=== PATIENT | female | born 1990 | race Caucasian/White ===

== ENCOUNTER 2017-09-24 17:17 | Emergency (ER) | payer OTHER ==
--- NOTE | 2017-09-24 17:53 | PDOC ---
Rapid Medical Evaluation Time Seen by Provider: 09/24/17 17:48 Medical Evaluation: Allergies Allergy/AdvReac Type Severity Reaction Status Date / Time No Known Allergies Allergy Verified 09/24/17 17:49 09/24/17 17:50 I have performed a brief in-person evaluation of the patient. The patient presents with a chief complaint of : lower abdominal cramping with +home test , seen by urgent care and referred here. States also spotting with pain mostly to left lower abdomen Pertinent physical exam findings. NAD unlabored breathing I have ordered the following urine , bhcg, cbc, This patient will proceed to the ED for further evaluation.
[2017-09-24 17:54] VITALS: BP 110/50; PULSE 87; TEMP 98.1; BMI 18.1
--- NOTE | 2017-09-24 18:15 | PDOC ---
History of Present Illness - General Chief Complaint: Vaginal Bleeding Stated Complaint: ABDOMINAL PAIN Time Seen by Provider: 09/24/17 17:48 - History of Present Illness Initial Comments: 09/24/17 18:15 Ms. Umanzor is a 27 yo A3 w/ pmh of GERD who presents for evaluation after she was found to be at urgent care earlier today. Patient had originally presented to urgent care for evaluation of abdominal pain for the last 2 weeks and was told to present to ED with positive diagnosis. Per who is with her Ms. Umanzor has had similar generalized abdominal pain with her last . Patient also reports shortness of breath earlier today although this has now resolved. The patient denies chest pain, headache and dizziness. Denies fever, chills, nausea, vomit, diarrhea and constipation. Denies dysuria, frequency, urgency and hematuria. Allergies: NKDA Past History - Past Medical History Allergies/Adverse Reactions: Allergies Allergy/AdvReac Type Severity Reaction Status Date / Time No Known Allergies Allergy Verified 09/24/17 17:49 Home Medications: Ambulatory Orders Cephalexin [Keflex] 500 mg PO BID #14 capsule 09/24/17 COPD: No - Suicide/Smoking/Psychosocial Hx Smoking History: Never smoked Have you smoked in the past 12 months: No Information on smoking cessation initiated: No Hx Alcohol Use: No Drug/Substance Use Hx: No Substance Use Type: None Review of Systems - Review of Systems Comments:: 09/24/17 18:15 GENERAL/CONSTITUTIONAL: No fever or chills. No weakness. HEAD, EYES, EARS, NOSE AND THROAT: No change in vision. No ear pain or discharge. No sore throat. CARDIOVASCULAR: +SOB as described. No chest pain. RESPIRATORY: No cough, wheezing, or hemoptysis. GASTROINTESTINAL: +Generalized abdominal pain. No nausea, vomiting, diarrhea or constipation. GENITOURINARY: No dysuria, frequency, or change in urination. MUSCULOSKELETAL: No joint or muscle swelling or pain. No neck or back pain. SKIN: No rash NEUROLOGIC: No headache, vertigo, loss of consciousness, or change in strength/ sensation. ENDOCRINE: No increased thirst. No abnormal weight change HEMATOLOGIC/LYMPHATIC: No anemia, easy bleeding, or history of blood clots. ALLERGIC/IMMUNOLOGIC: No hives or skin allergy. *Physical Exam - Vital Signs Last Vital Signs Temp Pulse Resp BP Pulse Ox 98.1 F 87 20 110/50 100 09/24/17 17:50 09/24/17 17:50 09/24/17 17:50 09/24/17 17:50 09/24/17 17:50 - Physical Exam Comments: 09/24/17 18:15 GENERAL: Awake, alert, and fully oriented, in no acute distress HEAD: No signs of trauma, normocephalic, atraumatic EYES: PERRLA, EOMI, sclera anicteric, conjunctiva clear ENT: Auricles normal inspection, hearing grossly normal, nares patent, oropharynx clear without exudates. Moist mucosa NECK: Normal ROM, supple, no lymphadenopathy, JVD, or masses LUNGS: No distress, speaks full sentences, clear to auscultation bilaterally HEART: Regular rate and rhythm, normal S1 and S2, no murmurs, rubs or gallops, peripheral pulses normal and equal bilaterally. ABDOMEN: +Generalized abdominal TTP. Soft, normoactive bowel sounds. No guarding , no rebound. No masses EXTREMITIES: Normal inspection, Normal range of motion, no edema. No clubbing or cyanosis. NEUROLOGICAL: Cranial nerves II through XII grossly intact. Normal speech, normal gait, no focal sensorimotor deficits SKIN: Warm, Dry, normal turgor, no rashes or lesions noted. ED Treatment Course - LABORATORY CBC & Chemistry Diagram: 09/24/17 18:29 Medical Decision Making - Medical Decision Making 09/24/17 20:45 Ms. Umanzor is a 27 yo female w/ pmh as described who presents for evaluation of abdominal pain in new onset . Patient noted to have UTI with positive nitriles as below. US sent for confirmation of IUP. 09/24/17 21:39 Patient noted to be 5w1d IUP, unable to visualize HR at this time. Patient given keflex for treatment of UTI. Patient will follow-up with [facility] for further outpatient evaluation. Laboratory Results - last 24 hr 09/24/17 09/24/17 09/24/17 18:29 18:29 19:30 WBC 4.4 RBC 4.65 Hgb 11.2 Hct 34.6 MCV 74.3 L MCH 24.0 L MCHC 32.3 RDW 16.4 H Plt Count 229 MPV 8.6 Neutrophils % 42.5 L Lymphocytes % 46.5 H Monocytes % 8.0 Eosinophils % 2.3 Basophils % 0.7 Nucleated RBC % 0 Beta HCG, Quant 04821.3 Urine Color Yellow Urine Appearance Slcloudy Urine pH 5.0 Ur Specific [place] 1.018 Urine Protein Negative Urine Glucose (UA) Negative Urine Ketones Negative Urine Blood 2+ H Urine Nitrite Positive Urine Bilirubin Negative Urine Urobilinogen Negative Ur Leukocyte Esterase Trace Urine WBC (Auto) 8 Urine RBC (Auto) 2 Ur Epithelial Cells Rare Urine Bacteria Few Urine Mucus Many Urine HCG, Qual Positive *DC/Admit/Observation/Transfer Diagnosis at time of Disposition: Qualifiers: Weeks of gestation: less than 8 weeks Qualified Code(s): Z3A.01 - Less than 8 weeks gestation of UTI (urinary tract infection) Qualifiers: Urinary tract infection type: site unspecified Hematuria presence: with hematuria Qualified Code(s): N39.0 - Urinary tract infection, site not specified ; R31.9 - Hematuria, unspecified - Prescriptions Prescriptions: Cephalexin [Keflex] 500 mg PO BID #14 capsule - Referrals Referrals: Jevon Gifford MD [Staff Physician] - - Patient Instructions Printed Discharge Instructions: DI for Urinary Tract Infection (UTI), DI for -- Discomforts and Remedies Additional Instructions: Please follow-up with [facility] as discussed for further evaluation. Take antibiotics as proscribed fur UTI treatment. Return to ER if any return or increase of pain, fever, chills, or other concerning symptoms. - Post Discharge Activity
--- NOTE | 2017-09-24 18:25 | PDOC ---
Attending Attestation - HPI HPI: 09/24/17 20:09 The patient is a 27 year old female, A3, with past medical history of GERD presents to the emergency department s/p urgent care for an evaluation. The patient reports she was at the urgency care earlier today due to abdominal pain. At the urgency care, the patient found out that she is , then was given a referral to get evaluated at the ED. As per the , the patient suffered a similar pain during the past . Denies any nausea or vomiting. Denies fever, chills, chest pain or sob. Denies headache or vertigo. Denies dysuria, hematuria, frequency or urgency to urinate. Denies any vaginal discharge or bleeding. Allergies: NKDA Social history: None reported Surgical history: None reported PCP: None reported. - Physicial Exam PE: 09/24/17 20:11 GENERAL: Awake, alert, and fully oriented, in no acute distress HEAD: No signs of trauma EYES: PERRLA, EOMI, sclera anicteric, conjunctiva clear ENT: Auricles normal inspection, hearing grossly normal, nares patent, oropharynx clear without exudates. Moist mucosa NECK: Normal ROM, supple, no lymphadenopathy, JVD, or masses LUNGS: Breath sounds equal, clear to auscultation bilaterally. No wheezes, and no crackles HEART: Regular rate and rhythm, normal S1 and S2, no murmurs, rubs or gallops ABDOMEN:(+) Mild suprapubic tenderness. Soft, normoactive bowel sounds. No guarding, no rebound. No masses EXTREMITIES: Normal range of motion, no edema. No clubbing or cyanosis. No cords, erythema, or tenderness NEUROLOGICAL: Cranial nerves II through XII grossly intact. Normal speech, normal gait SKIN: Warm, Dry, normal turgor, no rashes or lesions noted. - Medical Decision Making 09/24/17 20:11 Documentation prepared by Christelle Singh, acting as medical laboratory specialist for Ann Mcintosh MD. <Christelle Singh - Last Filed: 09/24/17 20:09> - Resident Resident Name: Dashawn Tirado - ED Attending Attestation I have performed the following: I have examined & evaluated the patient, The case was reviewed & discussed with the resident, I agree w/resident's findings & plan, Exceptions are as noted - Physicial Exam PE: : No external lesions. No discharge. No adnexal or uterine tenderness. - Medical Decision Making Pt with lower abd pain, positive UCG. Will obtain labs, UA, and ultrasound. <Ann Mcintosh - Last Filed: 09/24/17 20:15>
[2017-09-24 18:36] LABS: BASO % 0.7 % (0-2.0); EOS % 2.3 % (0-4.5); HEMATOCRIT 34.6 % (32.4-45.2); HEMOGLOBIN 11.2 GM/dL (10.7-15.3); LYMPH % 46.5 % (8-40); MCHC 32.3 g/dl (32.0-36.0); MEAN CELL VOLUME 74.3 fl (80-96); MEAN PLT VOLUME 8.6 fl (7.5-11.1); NEUT % 42.5 % (42.8-82.8); PLATELET COUNT 229 K/MM3 (134-434); RBC 4.65 M/mm3 (3.60-5.2); RDW 16.4 % (11.6-15.6); WHITE BLOOD COUNT 4.4 K/mm3 (4.0-10.0)
[2017-09-24 19:49] LABS: URINE APPEARANCE SLCLOUDY; URINE BILIRUBIN NEGATIVE (<2.0 mg/dL); URINE COLOR YELLOW; URINE GLUCOSE (UA) NEGATIVE (NEGATIVE); URINE KETONE NEGATIVE (NEGATIVE); URINE LEUK ESTERASE TRACE (NEGATIVE); URINE NITRITE POSITIVE (NEGATIVE); URINE PROTEIN NEGATIVE (NEGATIVE); URINE UROBILINOGEN NEGATIVE mg/dL (0.2-1.0)
[2017-09-24 20:02] LABS: HCG,QUALITATIVE URINE POSITIVE
[2017-09-24 20:04] LABS: EPI CELLS RARE /HPF (FEW); URINE BACTERIA FEW /hpf (NONE SEEN); URINE MUCUS MANY
[2017-09-24] MEDS ORDERED: CEPHALEXIN MONOHYDRATE 500 MG CAPSULE (UD) PO ONE (21:34)
[2017-09-24] MEDS ORDERED: CEPHALEXIN MONOHYDRATE 500 MG CAPSULE (UD) ONE (22:20)
== END 2017-09-24 22:31 | disposition home or self-care (01) ==
LOC: JER 17:17
DX: O26.891 Other specified pregnancy related conditions, first trimester (principal); Z3A.01 Less than 8 weeks gestation of pregnancy; N39.0 Urinary tract infection, site not specified; K21.9 Gastro-esophageal reflux disease without esophagitis
CPT/HCPCS: 36415; 76817-TC; 81003; 81015; 84702; 84703; 85025; 86850; 86900; 86901; 87086; 87186; 99283-25

== ENCOUNTER 2018-05-13 16:06 | Emergency (ER) | payer OTHER ==
[2018-05-13 16:30] VITALS: BP 125/93; PULSE 101; TEMP 97.9; BMI 19.7
--- NOTE | 2018-05-13 16:30 | PDOC ---
Rapid Medical Evaluation Chief Complaint: Hemoptysis Medical Evaluation: Allergies Allergy/AdvReac Type Severity Reaction Status Date / Time No Known Allergies Allergy Verified 09/24/17 17:49 I have performed a brief in-person evaluation of this patient. The patient presents with a chief complaint of: C/O cough x 3 weeks, and then noting hemoptysis x 5 days; denies fever, chills, weight loss; sent by PCP to r/ o TB Pertinent physical exam findings: In NAD I have ordered the following: Labs, CXR The patient will proceed to the ED for further evaluation. 05/13/18 16:26 Discharge Disposition - Discharge Dispostion Condition at time of disposition: Stable - Referrals - Patient Instructions - Post Discharge Activity
[2018-05-13 18:06] LABS: BASO % 0.4 % (0-2.0); EOS % 1.7 % (0-4.5); HEMATOCRIT 37.5 % (32.4-45.2); HEMOGLOBIN 12.4 GM/dL (10.7-15.3); LYMPH % 32.5 % (8-40); MCH 27.1 pg (25.7-33.7); MEAN CELL VOLUME 82.1 fl (80-96); MEAN PLT VOLUME 8.3 fl (7.5-11.1); MONO % 6.2 % (3.8-10.2); NEUT % 59.2 % (42.8-82.8); PLATELET COUNT 193 K/MM3 (134-434); RBC 4.57 M/mm3 (3.60-5.2); RDW 15.1 % (11.6-15.6)
[2018-05-13 18:24] LABS: ANION GAP 8 MMOL/L (8-16); BLOOD UREA NITROGEN 11 mg/dL (7-18); CALCIUM 8.8 mg/dL (8.5-10.1); CHLORIDE 108 mmol/L (98-107); CO2 27 mmol/L (21-32); CREATININE 0.5 mg/dL (0.55-1.3); GLUCOSE,RANDOM 90 mg/dL (74-106); POTASSIUM 3.8 mmol/L (3.5-5.1); SODIUM 142 mmol/L (136-145)
--- NOTE | 2018-05-13 18:26 | PDOC ---
History of Present Illness - General Chief Complaint: Hemoptysis Stated Complaint: PCP SENT Time Seen by Provider: 05/13/18 16:26 History Source: Patient Exam Limitations: No Limitations - History of Present Illness Initial Comments: 28 yo F with a hx of latent tuberculosis (dx 4 months ago; on INH and compliant ) presents to the emergency department as a referral from Dr. Condon to evaluate for active TB. Per the patient, she had 5 days of hemoptysis in late March and since then has not had another episode. For the past 3 weeks, she has had an ongoing non-productive cough with associative SOB without worsening with exertion. She moved from [facility] 2-3 years ago. Denies the following: night sweats, fevers, chest pain, and recent contact with others exhibiting similar symptoms. Per the patient, she endorse having weightloss for the last 6 months with improvement in weight over the past 2 months. Denies the following: FND, visual changes, nausea, vomiting, abdominal pain, dysuria, hematuria, diarrhea, hematochezia, and leg pain/swelling. Shx: C/S 2x Allergies: NKDA Meds: INH, vitamin B6, omeprazole Social: Denies tobacco, alcohol, and substance abuse. Past History - Past Medical History Allergies/Adverse Reactions: Allergies Allergy/AdvReac Type Severity Reaction Status Date / Time No Known Allergies Allergy Verified 05/13/18 18:32 Home Medications: Ambulatory Orders Cholecalciferol (Vitamin D3) [D3-50] 50,000 unit PO WEEKLY 05/13/18 Isoniazid 300 mg PO DAILY 05/13/18 Norethindrone 0.35 mg PO DAILY 05/13/18 Omeprazole 20 mg PO DAILY 05/13/18 Pyridoxine HCl (B-6) [Vitamin B6] 100 mg PO DAILY 05/13/18 COPD: No GI Disorders: No Hypercholesterolemia: No - Surgical History Gastric Stapling: No Lung Surgery: No - Reproductive History Para: 1 - Immunization History Immunization Up to Date: No - Suicide/Smoking/Psychosocial Hx Smoking History: Never smoked Have you smoked in the past 12 months: No Information on smoking cessation initiated: No Hx Alcohol Use: No Drug/Substance Use Hx: No Substance Use Type: None Review of Systems - Review of Systems Able to Perform ROS?: Yes Is the patient limited Estonian proficient: No Constitutional: No: Chills, Diaphoresis, Fever, Weakness HEENTM: No: Eye Pain, Recent change in vision, Ear Pain, Nose Pain, Throat Pain , Mouth Pain Respiratory: Yes: Cough, Shortness of Breath. No: SOB with Exertion, Hemoptysis Cardiac (ROS): No: Chest Pain, Lightheadedness, Palpitations, Syncope, Chest Tightness ABD/GI: No: Constipated, Diarrhea, Nausea, Poor Appetite, Poor Fluid Intake, Rectal Bleeding, Vomiting, Tarry Stools : No: Burning, Dysuria, Hematuria, Urgency Musculoskeletal: No: Back Pain, Joint Pain, Neck Pain Integumentary: No: Erythema, Flushing, Lesions, Rash, Sweating Neurological: No: Headache, Numbness, Tingling, Tremors, Ataxia, Dizziness Psychiatric: No: Stressors, Change in Appetite Endocrine: No: Unexplained Weight Gain Hematologic/Lymphatic: No: Anemia *Physical Exam - Vital Signs Last Vital Signs Temp Pulse Resp BP Pulse Ox 97.9 F 101 H 16 125/93 100 05/13/18 16:25 05/13/18 16:25 05/13/18 16:25 05/13/18 16:25 05/13/18 16:25 - Physical Exam General Appearance: Yes: Nourished, Appropriately Dressed. No: Apparent Distress, Intoxicated HEENT: positive: EOMI, JANINE, Normal ENT Inspection, Normal Voice, Symmetrical, TMs Normal, Pharynx Normal, Hearing Grossly Normal. negative: Pale Conjunctivae , Scleral Icterus (R), Scleral Icterus (L), Muffled/Hoarse voice, Pharyngeal Erythema, Tonsillar Exudate, Tonsillar Erythema, Nasal Congestion, Rhinorrhea, Sinus Tenderness, Excessive drooling Neck: positive: Trachea midline. negative: Tender, Lymphadenopathy (R), Lymphadenopathy (L), Tender lateral, Tender midline Respiratory/Chest: positive: Lungs Clear, Normal Breath Sounds. negative: Chest Tender, Respiratory Distress, Accessory Muscle Use, Crackles, Rales, Rhonchi, Stridor, Wheezing, Hyperresonant Cardiovascular: positive: Regular Rhythm, Regular Rate, S1, S2. negative: Systolic Murmur Gastrointestinal/Abdominal: positive: Normal Bowel Sounds, Flat, Soft. negative : Tender, Rebound, Tenderness, Hernia Lymphatic: negative: Adenopathy Musculoskeletal: positive: Normal Inspection. negative: CVA Tenderness, Vertebral Tenderness Extremity: positive: Normal Capillary Refill, Normal Inspection, Normal Range of Motion. negative: Tender, Swelling, Calf Tenderness Integumentary: positive: Normal Color, Dry, Warm. negative: Erythema, Jaundice , Moist, Hives, Petechiae, Rash, Swelling Neurologic: positive: gas plant repairer II-XII NML intact, Fully Oriented, Alert, Normal Mood/ Affect, Normal Response, Motor Strength 5/5. negative: EOM Palsy, Facial Droop , Sensory Deficit Moderate Sedation - Procedure Monitoring Vital Signs: Procedure Monitoring Vital Signs Temperature 97.9 F 05/13/18 16:25 Pulse Rate 101 H 05/13/18 16:25 Respiratory Rate 16 05/13/18 16:25 Blood Pressure 125/93 05/13/18 16:25 O2 Sat by Pulse Oximetry (%) 100 05/13/18 16:25 ED Treatment Course - LABORATORY CBC & Chemistry Diagram: 05/13/18 17:45 05/13/18 17:45 - ADDITIONAL ORDERS Additional order review: Laboratory Results 05/13/18 17:45 Sodium 142 Potassium 3.8 Chloride 108 H Carbon Dioxide 27 Anion Gap 8 BUN 11 Creatinine 0.5 L Creat Clearance w eGFR > 60 Random Glucose 90 Calcium 8.8 Medical Decision Making - Medical Decision Making 28 yo F with a hx of latent tuberculosis (dx 4 months ago; on INH and compliant ) presents to the emergency department as a referral from Dr. Condon to evaluate for active TB. Initial vitals: Initial Vital Signs Temp Pulse Resp BP Pulse Ox 97.9 F 101 H 16 125/93 100 05/13/18 16:25 05/13/18 16:25 05/13/18 16:25 05/13/18 16:25 05/13/18 16:25 Work up: ddx: r/o active TB vs URI vs PNA. patient has been compliant with medications including her b6 supplements. patient denies hemoptysis and likely does not have active. will have on contact precautions until cxr read. will get cbc, cmp, cxr, influenza Laboratory Tests 05/13/18 05/13/18 05/13/18 17:45 17:45 19:45 WBC 6.0 RBC 4.57 Hgb 12.4 Hct 37.5 MCV 82.1 MCH 27.1 D MCHC 33.0 RDW 15.1 Plt Count 193 MPV 8.3 Absolute Neuts (auto) 3.5 Neutrophils % 59.2 D Lymphocytes % 32.5 D Monocytes % 6.2 Eosinophils % 1.7 Basophils % 0.4 Nucleated RBC % 0 Sodium 142 Potassium 3.8 Chloride 108 H Carbon Dioxide 27 Anion Gap 8 BUN 11 Creatinine 0.5 L Creat Clearance w eGFR > 60 Random Glucose 90 Calcium 8.8 Influenza A (Rapid) Negative Influenza B (Rapid) Negative CXR was negative for active disease. patient's labs were within normal limits. negative flu. I spoke to Dr. Olivo over the phone and she agreed to follow up with the patient at discharge. I discussed the physical exam findings, ancillary test results, and final diagnoses with the patient. I answered all of the patients questions to their satisfaction. The patient was satisfied with the care received and felt comfortable with the discussed discharge and treatment plan and accepted it. They agreed to follow up with their primary medical physical physician within 24 -72 hours after discharge for follow up care and management. Dispo: Discharge *DC/Admit/Observation/Transfer Diagnosis at time of Disposition: Cough, Latent tuberculosis - Discharge Dispostion Disposition: HOME Condition at time of disposition: Good Decision to Admit order: No - Referrals Referrals: Domonique Olivo MD [Provisional Medical Staff] - - Patient Instructions Printed Discharge Instructions: DI for Tuberculosis Additional Instructions: you were evaluated in the emergency department for your cough and to ascertain if you have active tuberculosis. your chest xray was negative. please follow up with Dr. Olivo within the next 3 days for follow up care and management. please continue to take your antibiotics as prescribed. please return to the emergency department if you develop fevers with blood in your coughs, night sweats, and uncontrollable pain. thank you. - Post Discharge Activity
--- NOTE | 2018-05-13 18:51 | PDOC ---
Attending Attestation - Resident Resident Name: Tai Wilson - ED Attending Attestation I have performed the following: I have examined & evaluated the patient, The case was reviewed & discussed with the resident, I agree w/resident's findings & plan, Exceptions are as noted - Medical Decision Making 05/13/18 18:48 I, Dr. Hannah Hopson, DO, attest that this document has been prepared under my direction and personally reviewed by me in its entirety. I further attest, that it accurately reflects all work, treatment, procedures and medical decision -making performed by me. 05/13/18 18:49 a/p: 28yo female on isoniazid with cough- sent from Dr. Olivo for eval of cough -no hemoptysis since march -coughing more recently -on 4th bottle of INH -hx of TB -concern for active TB -seen by Dr. Condon today (pulm) 05/13/18 19:25 cxr clear <Hannah Hopson - Last Filed: 05/13/18 19:25> - HPI HPI: This patient is a 28 year old, Indonesian-speaking female (from [facility]) with PMHx of +TB, currently on 4th bottle of isoniazid with cough and sent by her farm agent for evaluation of cough (concern for active TB). Patient Canadian is limited and additional history was provided by her . He states that she was sick 2 weeks ago and had a cough with fever that eventually went away. He denies any fever, night sweats, or hemoptysis for the past 2 weeks. - Physicial Exam PE: GENERAL: Awake, alert, and fully oriented, in no acute distress HEAD: No signs of trauma EYES: PERRLA, EOMI, sclera anicteric, conjunctiva clear ENT: Auricles normal inspection, hearing grossly normal, nares patent, oropharynx clear without exudates. Moist mucosa NECK: Normal ROM, supple, no lymphadenopathy, JVD, or masses LUNGS: Breath sounds equal, clear to auscultation bilaterally. No wheezes, and no crackles HEART: Tachycardic Regular normal S1 and S2, no murmurs, rubs or gallops ABDOMEN: Soft, nontender, normoactive bowel sounds. No guarding, no rebound. No masses EXTREMITIES: Normal range of motion, no edema. No clubbing or cyanosis. No cords, erythema, or tenderness NEUROLOGICAL: Cranial nerves II through XII grossly intact. Normal speech, normal gait SKIN: Warm, Dry, normal turgor, no rashes or lesions noted. <Tessy Rodriguez - Last Filed: 05/13/18 20:56>
== END 2018-05-13 21:01 | disposition home or self-care (01) ==
LOC: JER 16:06
DX: R76.11 Nonspecific reaction to tuberculin skin test without active tuberculosis (principal); R05 Cough
CPT/HCPCS: 36415; 71046-TC-FY; 80048; 85025; 87804; 99283-25

== ENCOUNTER 2018-06-02 11:24 | Inpatient (IN) | payer OTHER ==
--- NOTE | 2018-06-02 11:32 | PDOC ---
History of Present Illness - General Stated Complaint: BACK PAIN Time Seen by Provider: 06/02/18 11:32 - History of Present Illness Initial Comments: 06/02/18 11:37 Ms. Umanzor is a 28 yo female w/ pmh of current treatment for latent TB (on INH for 5 months) who presents for evaluation of 1 day history of lower back pain, urinary frequency, myalgias, dysuria, fever, headache, and nausea. Also 10/10 sharp lower abdominal pain. LMP May 02, on OCP's. Patient presents from PCP 's office with concerns of UTI. The patient denies chest pain, shortness of breath, headache and dizziness. Denies fever, chills, nausea, vomit, diarrhea and constipation. Past History - Past Medical History Allergies/Adverse Reactions: Allergies Allergy/AdvReac Type Severity Reaction Status Date / Time No Known Allergies Allergy Verified 06/02/18 11:40 Home Medications: Ambulatory Orders Cholecalciferol (Vitamin D3) [D3-50] 50,000 unit PO WEEKLY 05/13/18 Isoniazid 300 mg PO DAILY 05/13/18 Norethindrone 0.35 mg PO DAILY 05/13/18 Omeprazole 20 mg PO DAILY 05/13/18 Pyridoxine HCl (B-6) [Vitamin B6] 100 mg PO DAILY 05/13/18 COPD: No GI Disorders: No Hypercholesterolemia: No - Surgical History Gastric Stapling: No Lung Surgery: No - Reproductive History Para: 1 - Immunization History Immunization Up to Date: No - Suicide/Smoking/Psychosocial Hx Smoking History: Never smoked Have you smoked in the past 12 months: No Hx Alcohol Use: No Drug/Substance Use Hx: No Substance Use Type: None Review of Systems - Review of Systems Comments:: 06/02/18 11:38 GENERAL/CONSTITUTIONAL: Fevers x1 day. No weakness. HEAD, EYES, EARS, NOSE AND THROAT: No change in vision. No ear pain or discharge. No sore throat. CARDIOVASCULAR: No chest pain or shortness of breath RESPIRATORY: No cough, wheezing, or hemoptysis. GASTROINTESTINAL: No nausea, vomiting, diarrhea or constipation. GENITOURINARY: +Urinary changes as described. MUSCULOSKELETAL: +Myalgias and lower back pain. SKIN: No rash NEUROLOGIC: No headache, vertigo, loss of consciousness, or change in strength/ sensation. ENDOCRINE: No increased thirst. No abnormal weight change HEMATOLOGIC/LYMPHATIC: No anemia, easy bleeding, or history of blood clots. ALLERGIC/IMMUNOLOGIC: No hives or skin allergy. *Physical Exam - Physical Exam Comments: 06/02/18 11:38 GENERAL: Awake, alert, and fully oriented, in no acute distress HEAD: No signs of trauma, normocephalic, atraumatic EYES: PERRLA, EOMI, sclera anicteric, conjunctiva clear ENT: Auricles normal inspection, hearing grossly normal, nares patent, oropharynx clear without exudates. Moist mucosa NECK: Normal ROM, supple, no lymphadenopathy, JVD, or masses LUNGS: No distress, speaks full sentences, clear to auscultation bilaterally HEART: Regular rate and rhythm, normal S1 and S2, no murmurs, rubs or gallops, peripheral pulses normal and equal bilaterally. ABDOMEN: +Right CVA tenderness, midline abdominal TTP. Soft, normoactive bowel sounds. No guarding, no rebound. No masses EXTREMITIES: Normal inspection, Normal range of motion, no edema. No clubbing or cyanosis. NEUROLOGICAL: Cranial nerves II through XII grossly intact. Normal speech, normal gait, no focal sensorimotor deficits SKIN: Warm, Dry, normal turgor, no rashes or lesions noted. VAGINAL: +Right adnexal tenderness. Physiologic discharge. No CMT, minimal blood noted in cervix thought to be 2/2 speculum insertion. Os closed. ED Treatment Course - LABORATORY CBC & Chemistry Diagram: 06/02/18 12:45 06/02/18 12:13 Medical Decision Making - Medical Decision Making 06/02/18 15:56 Ms. Umanzor is a 28 yo female w/ pmh as described who presents for evaluation of symptoms concerning for appendicitis vs. ovarian torsion vs. pyelonephritis vs. uti. Patient evaluation started as below and grossly non-contributory. Rocephin 1000mg given for UTI as below. Patient evaluated with TVUS for r/o torsion; significant for single L sided simple cyst 4.2x4.8x3.6cm. Patient currently pending CT abd/pelvis for further evaluation of pain. 06/02/18 17:38 Patient noted to have right pyelonephritis and pyelitis. Discussed with patient who would prefer inpatient treatment. Will admit patient to PCP for further care. Laboratory Results - last 24 hr 0206/02/18 06/02/18 12:13 12:13 12:45 WBC RBC Hgb Hct MCV MCH MCHC RDW Plt Count MPV Absolute Neuts (auto) Neutrophils % Lymphocytes % Monocytes % Eosinophils % Basophils % Nucleated RBC % PT with INR INR PTT (Actin FS) Sodium 133 L Potassium 3.3 L Chloride 101 Carbon Dioxide 21 Anion Gap 10 BUN 6 L Creatinine 0.5 L Creat Clearance w eGFR > 60 Random Glucose 89 Lactic Acid 1.2 Calcium 8.3 L Total Bilirubin 0.8 AST 12 L ALT 10 L Alkaline Phosphatase 34 L Troponin I < 0.02 Total Protein 7.4 Albumin 3.8 Serum , Qual Negative Urine Color Urine Appearance Urine pH Ur Specific [place] Urine Protein Urine Glucose (UA) Urine Ketones Urine Blood Urine Nitrite Urine Bilirubin Urine Urobilinogen Ur Leukocyte Esterase Urine WBC (Auto) Urine RBC (Auto) Ur Epithelial Cells Urine Bacteria 06/02/18 06/02/18 06/02/18 12:45 12:45 12:45 WBC 7.1 RBC 4.54 Hgb 12.7 Hct 36.9 MCV 81.3 MCH 28.0 MCHC 34.4 RDW 14.4 Plt Count 154 D MPV 8.9 Absolute Neuts (auto) 6.0 Neutrophils % 84.6 H D Lymphocytes % 10.1 D Monocytes % 5.0 Eosinophils % 0.0 D Basophils % 0.3 Nucleated RBC % 0 PT with INR 14.90 H INR 1.26 H PTT (Actin FS) 29.3 Sodium Potassium Chloride Carbon Dioxide Anion Gap BUN Creatinine Creat Clearance w eGFR Random Glucose Lactic Acid Calcium Total Bilirubin AST ALT Alkaline Phosphatase Troponin I Total Protein Albumin Serum , Qual Urine Color Ltyellow Urine Appearance Slcloudy Urine pH 6.0 Ur Specific [place] 1.008 L Urine Protein 1+ H Urine Glucose (UA) Negative Urine Ketones 1+ H Urine Blood 3+ H Urine Nitrite Negative Urine Bilirubin Negative Urine Urobilinogen Negative Ur Leukocyte Esterase 1+ H Urine WBC (Auto) 48 Urine RBC (Auto) 21 Ur Epithelial Cells Rare Urine Bacteria Rare *DC/Admit/Observation/Transfer Diagnosis at time of Disposition: Pyelonephritis - Discharge Dispostion Decision to Admit order: Yes - Referrals Referrals: Cristy Guy MD [Primary Care Provider] - - Patient Instructions - Post Discharge Activity
[2018-06-02] MEDS ORDERED: SODIUM CHLORIDE 2,000 ML IV STA (12:15)
[2018-06-02] MEDS ORDERED: ACETAMINOPHEN 1000 MG/100 ML VIAL (NON FORMULARY) IVPB ONE ×2 (12:15→17:22)
[2018-06-02] MEDS ORDERED: ONDANSETRON 4 MG/2 ML VIAL IVPUSH ONE (12:15)
[2018-06-02] MEDS ORDERED: ACETAMINOPHEN INJECTION 100 ML IVPB ONE ×2 (12:18→17:38)
[2018-06-02] MEDS ORDERED: ONDANSETRON 4 MG/2 ML VIAL ONE (12:18)
[2018-06-02 12:55] LABS: BASO % 0.3 % (0-2.0); HEMATOCRIT 36.9 % (32.4-45.2); HEMOGLOBIN 12.7 GM/dL (10.7-15.3); LYMPH % 10.1 % (8-40); MCHC 34.4 g/dl (32.0-36.0); MEAN CELL VOLUME 81.3 fl (80-96); MEAN PLT VOLUME 8.9 fl (7.5-11.1); NEUT % 84.6 % (42.8-82.8); PLATELET COUNT 154 K/MM3 (134-434); RBC 4.54 M/mm3 (3.60-5.2); RDW 14.4 % (11.6-15.6); WHITE BLOOD COUNT 7.1 K/mm3 (4.0-10.0)
[2018-06-02 13:14] LABS: INR 1.26 (0.83-1.09); PROTHROMBIN TIME (PATIENT) 14.9 SEC (9.7-13.0)
[2018-06-02 13:16] LABS: ACTIVATED PTT 29.3 SECONDS (25.2-36.5)
[2018-06-02 13:22] LABS: URINE APPEARANCE SLCLOUDY; URINE BILIRUBIN NEGATIVE (<2.0 mg/dL); URINE COLOR LTYELLOW; URINE GLUCOSE (UA) NEGATIVE (NEGATIVE); URINE KETONE 1+ (NEGATIVE); URINE LEUK ESTERASE 1+ (NEGATIVE); URINE NITRITE NEGATIVE (NEGATIVE); URINE PROTEIN 1+ (NEGATIVE); URINE UROBILINOGEN NEGATIVE mg/dL (0.2-1.0)
[2018-06-02 13:32] LABS: ALBUMIN 3.8 g/dl (3.4-5.0); ALK PHOS 34 U/L (45-117); ANION GAP 10 MMOL/L (8-16); BILIRUBIN,TOTAL 0.8 mg/dL (0.2-1); BLOOD UREA NITROGEN 6 mg/dL (7-18); CALCIUM 8.3 mg/dL (8.5-10.1); CHLORIDE 101 mmol/L (98-107); CO2 21 mmol/L (21-32); CREATININE 0.5 mg/dL (0.55-1.3); GLUCOSE,RANDOM 89 mg/dL (74-106); POTASSIUM 3.3 mmol/L (3.5-5.1); SGOT/AST 12 U/L (15-37); SGPT/ALT 10 U/L (13-61); SODIUM 133 mmol/L (136-145); TOT PROT 7.4 g/dl (6.4-8.2)
[2018-06-02 13:33] LABS: EPI CELLS RARE /HPF (FEW); URINE BACTERIA RARE /hpf (NONE SEEN)
--- NOTE | 2018-06-02 13:49 | PDOC ---
Attending Attestation - Resident Resident Name: Dashawn Tirado - ED Attending Attestation I have performed the following: I have examined & evaluated the patient, The case was reviewed & discussed with the resident, I agree w/resident's findings & plan, Exceptions are as noted - HPI HPI: 06/02/18 13:44 28 F with h/o latent TB on INH, presenting to ED with fevers, dysuria, and lower back pain. Pt states that her symptoms began yesterday. She endorses R lower back pain and suprapubic pain. Also reports urinary frequency and dysuria , as well as generalized bodyaches. LMP was 1/5. Denies any vaginal bleeding currently. No h/o kidney stones. - Physicial Exam PE: 06/02/18 13:47 "GENERAL: Awake, alert, and fully oriented, in no acute distress. HEAD: No signs of trauma EYES: PERRLA, EOMI, sclera anicteric, conjunctiva clear ENT: Auricles normal inspection, hearing grossly normal, nares patent, oropharynx clear without exudates. Moist mucosa NECK: Nontender, no stepoffs, Normal ROM, supple, no lymphadenopathy, JVD, or masses LUNGS: Breath sounds equal, clear to auscultation bilaterally. No wheezes, and no crackles HEART: Regular rate and rhythm, normal S1 and S2, no murmurs, rubs or gallops ABDOMEN: + suprapubic TTP, normoactive bowel sounds. No guarding, no rebound. No masses BACK: + R CVAT, no midline TTP EXTREMITIES: Normal range of motion, no edema. No clubbing or cyanosis. No cords, erythema, or tenderness NEUROLOGICAL: Cranial nerves II through XII intact. 5/5 strength and sensation in all extremities, Normal speech, normal gait, normal cerebellar function SKIN: Warm, Dry, normal turgor, no rashes or lesions noted. : os closed, no bleeding, + R adnexal tenderness, no CMT - Medical Decision Making 06/02/18 13:48 28 F with dysuria, fevers, and R flank pain. Exam notable for R CVAT, suprapubic TTP, and R adnexal TTP. Suspect pyelo. Will also r/o appy vs torsion vs ectopic. - Labs, UPT - UA, UCx - TVUS - CTAP - IVF, tylenol 06/02/18 15:51 Labs unremarkable UA consistent with UTI Pt given ceftriaxone TVUS shows large L ovarian cyst with normal flow, R ovary unremarkable CT shows pyelo + pyelitis Will admit for continued IV abx and pain control
--- NOTE | 2018-06-02 14:04 | EKG ---
Test Reason : Blood Pressure : / mmHG Vent. Rate : 108 BPM Atrial Rate : 108 BPM P-R Int : 150 ms QRS Dur : 108 ms QT Int : 314 ms P-R-T Axes : 068 065 059 degrees QTc Int : 420 ms SINUS TACHYCARDIA POSSIBLE LEFT ATRIAL ENLARGEMENT INCOMPLETE RIGHT BUNDLE BRANCH BLOCK NONSPECIFIC T WAVE ABNORMALITY ABNORMAL ECG NO PREVIOUS ECGS AVAILABLE Confirmed by Jerome Blair MD ([id number]) on 06/02/2018 2:04:08 PM Referred By: Confirmed By:Jerome Blair MD
[2018-06-02] MEDS ORDERED: CEFTRIAXONE 1,000 MG in DEXTROSE 5%-WATER - 50 ML IVPB ONE (15:42)
[2018-06-02] MEDS ORDERED: CEFTRIAXONE 1 GM/50 ML BAG ONE (16:38)
[2018-06-02] MEDS ORDERED: IBUPROFEN 600 MG TABLET (FP) PO ONE ×2 (18:46→18:49)
--- NOTE | 2018-06-02 21:54 | PN ---
Teaching Attending Note Name of Resident: Sandy Stevens ATTENDING PHYSICIAN STATEMENT I saw and evaluated the patient. I reviewed the resident's note and discussed the case with the resident. I agree with the resident's findings and plan as documented. SUBJECTIVE: Patient is a 28 year old woman with PMH latent TB currently on INH (on INH for 5 months) who presents for evaluation of 1 day history of lower back pain, urinary frequency, myalgias, dysuria, fever, headache, and nausea. Also 10/10 sharp lower abdominal pain. LMP May 02, 2018 and on OCP (norethindrone - a form of progestin). Patient presents from PCP's office with concerns of UTI. She denies chest pain, shortness of breath, headache and dizziness. Denies fever , chills, nausea, vomit, diarrhea or constipation. OBJECTIVE: Alert Vital Signs Period Temp Pulse Resp BP Sys/Calero Pulse Ox Last 24 Hr 99.4 F-102.7 F 94-120 16-21 100-159/53-73 98-100 HEENT: No Jaundice, eye redness or discharge, PERRLA, EOMI. Normocephalic, atraumatic. External ears are normal and hearing is grossly intact. No nasal discharge. Neck: Supple, nontender. No palpable adenopathy or thyromegaly. No JVD Chest: Good effort. Clear to auscultation and percussion. Heart: Regular. No S3, rub or murmur Abdomen: Not distended, soft, right CVAT, suprapubic tenderness no HSM. No rebound or guarding. Normoactive bowel sounds. Ext: Peripheral pulses intact. No leg edema. Skin: Warm and dry. No petechiae, rash or ecchymosis. Neuro: Alert. Oriented x3. CN 2-12 grossly intact. Sensation grossly intact in all four extremities and DTR are symmetric. Vaginal Exam: Done by ER staff showed right adnexal tenderness and no abnormal vaginal discharge. Home Medications Medication Instructions Recorded Cholecalciferol (Vitamin D3) 50,000 unit PO WEEKLY 05/13/18 [D3-50] Isoniazid 300 mg PO DAILY 05/13/18 Norethindrone 0.35 mg PO DAILY 05/13/18 Omeprazole 20 mg PO DAILY 05/13/18 Pyridoxine HCl (B-6) [Vitamin B6] 100 mg PO DAILY 05/13/18 Abnormal Lab Results 06/02/18 06/02/18 06/02/18 12:13 12:45 12:45 Neutrophils % 84.6 H D PT with INR 14.90 H INR 1.26 H Sodium 133 L Potassium 3.3 L BUN 6 L Creatinine 0.5 L Calcium 8.3 L AST 12 L ALT 10 L Alkaline Phosphatase 34 L Ur Specific [place] Urine Protein Urine Ketones Urine Blood Ur Leukocyte Esterase 06/02/18 12:45 Neutrophils % PT with INR INR Sodium Potassium BUN Creatinine Calcium AST ALT Alkaline Phosphatase Ur Specific [place] 1.008 L Urine Protein 1+ H Urine Ketones 1+ H Urine Blood 3+ H Ur Leukocyte Esterase 1+ H ASSESSMENT AND PLAN: 1. Sepsis due to Pyelonephritis - Will continue Rocephin 1 gm iV q 24 hours and IV NS. Outpatient [facility] follow up for bilateral ovarian cysts noted on sonogram. No acute abnormality on CXR. Hypokalemia may be a side effect of INH therapy. Will check serum Mg+ level and give oral KCL 40 meq tid x 3 doses. 2. DVT prophylaxis - Lovenox 40 mg SQ q 24 hours. 3. Advance directives - Full code
--- NOTE | 2018-06-02 22:27 | HP ---
CHIEF COMPLAINT:pyelonephritris PCP: clinic patient HISTORY OF PRESENT ILLNESS: 28 y.o female with PMH of latent TB (on INH for the past 6 months) presents to the ED with a one day history of fevers/dysuria and right sided back pain for the past day. This is the first time she is experiencing these symptoms- she has never had kidney stones in the past. she denies any sick contacts or recent travel. ER course was notable for: (1) fever on admission was 102.7 (2)ab/pelvis CT was positive for R sided pyelonephritis (3)started on Ceftriaxone Recent Travel: denies PAST MEDICAL HISTORY: see above PAST SURGICAL HISTORY: 2 c sections in the past Social History: Smoking:denies Alcohol:denies Drugs: denies Family History:denies Allergies No Known Allergies Allergy (Verified 06/02/18 11:40) HOME MEDICATIONS: Home Medications Medication Instructions Recorded Cholecalciferol (Vitamin D3) 50,000 unit PO WEEKLY 05/13/18 [D3-50] Isoniazid 300 mg PO DAILY 05/13/18 Norethindrone 0.35 mg PO DAILY 05/13/18 Omeprazole 20 mg PO DAILY 05/13/18 Pyridoxine HCl (B-6) [Vitamin B6] 100 mg PO DAILY 05/13/18 REVIEW OF SYSTEMS CONSTITUTIONAL: Absent: fever, chills, diaphoresis, generalized weakness, malaise, loss of appetite, weight change HEENT: Absent: rhinorrhea, nasal congestion, throat pain, throat swelling, difficulty swallowing, mouth swelling, ear pain, eye pain, visual changes CARDIOVASCULAR: Absent: chest pain, syncope, palpitations, irregular heart rate, lightheadedness , peripheral edema RESPIRATORY: Absent: cough, shortness of breath, dyspnea with exertion, orthopnea, wheezing, stridor, hemoptysis GASTROINTESTINAL: Absent: abdominal pain, abdominal distension, nausea, vomiting, diarrhea, constipation, melena, hematochezia GENITOURINARY: Present:dysuria, frequency, flank pain, Absent: ,hesitancy, hematuria,, genital pain MUSCULOSKELETAL: Absent: myalgia, arthralgia, joint swelling, back pain, neck pain SKIN: Absent: rash, itching, pallor HEMATOLOGIC/IMMUNOLOGIC: Absent: easy bleeding, easy bruising, lymphadenopathy, frequent infections ENDOCRINE: Absent: unexplained weight gain, unexplained weight loss, heat intolerance, cold intolerance NEUROLOGIC: Absent: headache, focal weakness or paresthesias, dizziness, unsteady gait, seizure, mental status changes, bladder or bowel incontinence PSYCHIATRIC: Absent: anxiety, depression, suicidal or homicidal ideation, hallucinations. PHYSICAL EXAMINATION Vital Signs - 24 hr 06/02/18 06/02/18 06/02/18 11:24 14:15 17:39 Temperature 102.7 F H 99.4 F 100.4 F H Pulse Rate 115 H Pulse Rate [ 94 H 120 H Apical] Respiratory 16 18 17 Rate Blood Pressure 112/73 Blood Pressure 100/58 L 159/67 [Left Arm] O2 Sat by Pulse 100 98 100 Oximetry (%) 06/02/18 06/02/18 18:18 18:44 Temperature 101.9 F H Pulse Rate Pulse Rate [ 103 H Apical] Respiratory 21 H Rate Blood Pressure Blood Pressure 105/53 L [Left Arm] O2 Sat by Pulse 100 98 Oximetry (%) GENERAL: Awake, alert, and fully oriented, in no acute distress. EYES: EOMI: PEERLA; scleral icterus NECK: no JVD, no lymphadenopathy LUNGS: CTA B/L; no rales, rhonchi or wheezing. HEART: Regular rate and rhythm, normal S1 and S2 without murmur, rub or gallop. ABDOMEN: Soft,suprapubic tenderness, not distended, normoactive bowel sounds, no guarding, no rebound, no masses. No hepatomegaly or splenomegaly. MUSCULOSKELETAL:+ right sided CVA tenderness. EXTREMITIES: warm;welll-perfused, no clubbing/cyanosis or edema NEUROLOGICAL: Cranial nerves II-XII intact. Normal speech. Normal gait. PSYCHIATRIC: Cooperative. Good eye contact. Appropriate mood and affect. SKIN: Warm, dry, normal turgor, no rashes or lesions noted, normal capillary refill. Laboratory Results - last 24 hr 06/02/18 06/02/18 06/02/18 12:13 12:13 12:45 WBC RBC Hgb Hct MCV MCH MCHC RDW Plt Count MPV Absolute Neuts (auto) Neutrophils % Lymphocytes % Monocytes % Eosinophils % Basophils % Nucleated RBC % PT with INR INR PTT (Actin FS) Sodium 133 L Potassium 3.3 L Chloride 101 Carbon Dioxide 21 Anion Gap 10 BUN 6 L Creatinine 0.5 L Creat Clearance w eGFR > 60 Random Glucose 89 Lactic Acid 1.2 Calcium 8.3 L Total Bilirubin 0.8 AST 12 L ALT 10 L Alkaline Phosphatase 34 L Troponin I < 0.02 Total Protein 7.4 Albumin 3.8 Serum , Qual Negative Urine Color Urine Appearance Urine pH Ur Specific [place] Urine Protein Urine Glucose (UA) Urine Ketones Urine Blood Urine Nitrite Urine Bilirubin Urine Urobilinogen Ur Leukocyte Esterase Urine WBC (Auto) Urine RBC (Auto) Ur Epithelial Cells Urine Bacteria 06/02/18 06/02/18 06/02/18 12:45 12:45 12:45 WBC 7.1 RBC 4.54 Hgb 12.7 Hct 36.9 MCV 81.3 MCH 28.0 MCHC 34.4 RDW 14.4 Plt Count 154 D MPV 8.9 Absolute Neuts (auto) 6.0 Neutrophils % 84.6 H D Lymphocytes % 10.1 D Monocytes % 5.0 Eosinophils % 0.0 D Basophils % 0.3 Nucleated RBC % 0 PT with INR 14.90 H INR 1.26 H PTT (Actin FS) 29.3 Sodium Potassium Chloride Carbon Dioxide Anion Gap BUN Creatinine Creat Clearance w eGFR Random Glucose Lactic Acid Calcium Total Bilirubin AST ALT Alkaline Phosphatase Troponin I Total Protein Albumin Serum , Qual Urine Color Ltyellow Urine Appearance Slcloudy Urine pH 6.0 Ur Specific [place] 1.008 L Urine Protein 1+ H Urine Glucose (UA) Negative Urine Ketones 1+ H Urine Blood 3+ H Urine Nitrite Negative Urine Bilirubin Negative Urine Urobilinogen Negative Ur Leukocyte Esterase 1+ H Urine WBC (Auto) 48 Urine RBC (Auto) 21 Ur Epithelial Cells Rare Urine Bacteria Rare ASSESSMENT/PLAN: 28 y/o female with PMH of latehnt TB (on INH) presents with a one day history of fever,dysuria,R sided CVA tenderness found to have R sided pyelonephritis #Pyelonephritis -c/w ceftriaxone 1gram daily -tylenol PRN for pain -NS @100mls/hr -monitor hemodynamics #Hypokalemia -replete with 20KCL -repeat BMP in AM F/E/N NS @100mls/hr monitor electrolytes regular diet DVT PPX: lovenox Problem List - Problem (1) Pyelonephritis Code(s): N12 - TUBULO-INTERSTITIAL NEPHRITIS, NOT SPCF ACUTE OR CHRONIC Visit type - Emergency Visit Emergency Visit: Yes ED Registration Date: 06/02/18 Care time: The patient presented to the Emergency Department on the above date and was hospitalized for further evaluation of their emergent condition. - New Patient This patient is new to me today: Yes Date on this admission: 06/02/18 - Critical Care Critical Care patient: No
[2018-06-03] MEDS: POTASSIUM CHLORIDE TABS 20 MEQ TABLET.ER (FP) PO SCH ×3 (01:28→21:53)
[2018-06-03] MEDS: SODIUM CHLORIDE 1,000 ML IV SCH ×4 (01:28→23:30)
[2018-06-03 05:10] VITALS: BMI 21.5
[2018-06-03] MEDS ORDERED: ACETAMINOPHEN 325 MG TABLET (FP) PO PRN (06:39)
[2018-06-03 08:16] LABS: BASO % 0.2 % (0-2.0); HEMATOCRIT 32.5 % (32.4-45.2); HEMOGLOBIN 11.1 GM/dL (10.7-15.3); LYMPH % 9.9 % (8-40); MCH 28.2 pg (25.7-33.7); MCHC 34.1 g/dl (32.0-36.0); MEAN CELL VOLUME 82.5 fl (80-96); MEAN PLT VOLUME 9.1 fl (7.5-11.1); NEUT % 84.9 % (42.8-82.8); PLATELET COUNT 126 K/MM3 (134-434); RBC 3.94 M/mm3 (3.60-5.2); RDW 14.7 % (11.6-15.6); WHITE BLOOD COUNT 6.7 K/mm3 (4.0-10.0)
[2018-06-03] MEDS ORDERED: MORPHINE SULFATE 2 MG/ML VIAL IM ONE (09:00)
[2018-06-03] MEDS ORDERED: DEXTROSE 5%-WATER - 50 ML IVPB ONE (09:08)
[2018-06-03] MEDS ORDERED: cefTRIAXone SODIUM 1 GM VIAL ONE (09:08)
[2018-06-03] MEDS: CEFTRIAXONE 1 GM in DEXTROSE 5%-WATER - 50 ML IVPB SCH (09:12)
[2018-06-03] MEDS: ENOXAPARIN NA (PORCINE) 40 MG/0.4 ML DISP.SYRIN SQ SCH (09:18)
[2018-06-03] MEDS: ISONIAZID 300 MG TABLET (FP) PO SCH ×2 (09:18→15:27)
[2018-06-03] MEDS: PANTOPRAZOLE 20 MG TABLET (FP) PO SCH ×2 (09:18→15:29)
[2018-06-03] MEDS: PYRIDOXINE HCL (B-6) 50 MG TABLET (FP) PO SCH ×2 (09:18→15:29)
[2018-06-03 09:24] LABS: ALK PHOS 37 U/L (45-117); ANION GAP 9 MMOL/L (8-16); BILIRUBIN,TOTAL 0.6 mg/dL (0.2-1); BLOOD UREA NITROGEN 6 mg/dL (7-18); CALCIUM 7.3 mg/dL (8.5-10.1); CHLORIDE 107 mmol/L (98-107); CO2 20 mmol/L (21-32); CREATININE 0.5 mg/dL (0.55-1.3); GLUCOSE,RANDOM 80 mg/dL (74-106); MAGNESIUM 1.9 mg/dL (1.8-2.4); PHOSPHOROUS 1.7 mg/dL (2.5-4.9); POTASSIUM 3.5 mmol/L (3.5-5.1); SGOT/AST 14 U/L (15-37); SGPT/ALT 11 U/L (13-61); SODIUM 137 mmol/L (136-145); TOT PROT 6.6 g/dl (6.4-8.2)
[2018-06-03] MEDS ORDERED: FLU VACCINE QUAD 60 MCG/0.5 ML (MDV 18-19) IM ONE (10:00)
[2018-06-03] MEDS ORDERED: NORETHINDRONE 0.35 MG PO SCH (10:00)
[2018-06-03] MEDS ORDERED: MORPHINE SULFATE 2 MG/ML VIAL IVPUSH PRN (15:05)
[2018-06-03] MEDS ORDERED: PT OWN MED DRAWER 7, Y5N ONE (15:26)
[2018-06-03] MEDS ORDERED: oxyCODONE HCL 5 MG TABLET PO PRN (16:48)
--- NOTE | 2018-06-03 16:49 | PN ---
Teaching Attending Note Name of Resident: Misael Ramos ATTENDING PHYSICIAN STATEMENT I saw and evaluated the patient. I reviewed the resident's note and discussed the case with the resident. I agree with the resident's findings and plan as documented. SUBJECTIVE: cont to have fever , fatigue . R flank pain OBJECTIVE: NAD CV : RRR Lungs: CTAB Abd: soft, TTP in RLQ , RUQ, and R flank. + CVA tenderness Ext : no edema ASSESSMENT AND PLAN: 28 y/o lady with h/o latent TB who presented with fatigue, fever and lower back paina nd was found to have R pyelonephritis . 1- Acute pyelonpehritis : - fever within 48 hr from starting Abx. - cont ceftriaxone . - follow final ID and sens of urine cx ( Non lactose fermenting bacilli ) - Uro consult , for dilated collecting system on L . - IVF - follow urine cx 2- h/o Latent TB. cont with isonizide 300 mg daily dispo : HLOC
--- NOTE | 2018-06-03 17:12 | CON.GU ---
Consult Consult Specialty:: Urology Reason for Consultation:: Right flank pain - History of Present Illness Chief Complaint: right flank pain - History Source History Provided By: Patient, Medical Record (right flank pain) - Past Medical History ...LMP: 05/02/18 ...: No - Alcohol/Substance Use Hx Alcohol Use: No - Smoking History Smoking history: Never smoked Have you smoked in the past 12 months: No Home Medications - Allergies Allergies/Adverse Reactions: Allergies Allergy/AdvReac Type Severity Reaction Status Date / Time No Known Allergies Allergy Verified 06/02/18 11:40 - Home Medications Home Medications: Ambulatory Orders Cholecalciferol (Vitamin D3) [D3-50] 50,000 unit PO WEEKLY 05/13/18 Isoniazid 300 mg PO DAILY 05/13/18 Norethindrone 0.35 mg PO DAILY 05/13/18 Omeprazole 20 mg PO DAILY 05/13/18 Pyridoxine HCl (B-6) [Vitamin B6] 100 mg PO DAILY 05/13/18 Famotidine [Pepcid] 40 mg PO DAILY 06/03/18 Ferrous Sulfate 325 mg PO BID 06/03/18 Vit 93/Iron Fum/Folic [ Formula Tablet] 1 tablet PO DAILY 06/03 Physical Exam- Vital Signs: Vital Signs Temperature 100.6 F H 06/03/18 14:25 Pulse Rate 100 H 06/03/18 10:00 Respiratory Rate 20 06/03/18 10:00 Blood Pressure 106/55 L 06/03/18 10:00 O2 Sat by Pulse Oximetry (%) 100 06/03/18 05:37 Renal/: Yes: CVA Tenderness - Right Labs: CBC, BMP 06/03/18 07:00 06/03/18 07:00 Imaging - Results Cat Scan: Report Reviewed Ultrasound: Report Reviewed Problem List - Problems (1) Pyelonephritis Assessment/Plan: radiographic evidence of pylonephritis Possible right mild dilation on Ct Possibly will resolve w treatment for infection If persists and is not clinically contraindicated would consider renal scan w lasix Analgesics prn Code(s): N12 - TUBULO-INTERSTITIAL NEPHRITIS, NOT SPCF ACUTE OR CHRONIC
--- NOTE | 2018-06-03 18:03 | PN ---
Physical Exam: SUBJECTIVE: Patient seen and examined at bedside this morning. Patient reports severe 10/10 right flank pain. Patient is a 28 year old female with past medical history of latent TB (on INH for the past 4 months), presented with one day history of fevers, dysuria and right flank pain. Patient denies any sick contacts or recent travel, denies headache, dizziness, vomiting, nausea, chest pain, SOB, diarrhea. OBJECTIVE: Vital Signs Period Temp Pulse Resp BP Sys/Calero Pulse Ox Last 24 Hr 97.7 F-101.9 F 100-103 16-21 105-116/53-63 98-100 GENERAL: The patient is awake, alert, and fully oriented, in no acute distress. HEAD: Normal with no signs of trauma. EYES: PERRLA, EOMI, sclera anicteric, conjunctiva clear. ENT: Ears normal,oropharynx clear without exudates, dry mucous membranes. NECK: Trachea midline, full range of motion, supple. LUNGS: Breath sounds equal, clear to auscultation bilaterally. HEART: Regular rate and rhythm, S1, S2 without murmur, rub or gallop. ABDOMEN: Soft, nontender, nondistended, normoactive bowel sounds. +Right CVA tenderness EXTREMITIES: 2+ pulses, warm, well-perfused, no edema. SKIN: Warm, dry, normal turgor, no rashes or lesions noted Laboratory Results - last 24 hr 06/03/18 06/03/18 07:00 07:00 WBC 6.7 RBC 3.94 Hgb 11.1 Hct 32.5 MCV 82.5 MCH 28.2 MCHC 34.1 RDW 14.7 Plt Count 126 L MPV 9.1 Absolute Neuts (auto) 5.7 Neutrophils % 84.9 H Lymphocytes % 9.9 Monocytes % 5.0 Eosinophils % 0.0 Basophils % 0.2 Nucleated RBC % 0 Sodium 137 Potassium 3.5 Chloride 107 Carbon Dioxide 20 L Anion Gap 9 BUN 6 L Creatinine 0.5 L Creat Clearance w eGFR > 60 Random Glucose 80 Calcium 7.3 L Phosphorus 1.7 L Magnesium 1.9 Total Bilirubin 0.6 AST 14 L ALT 11 L Alkaline Phosphatase 37 L Total Protein 6.6 Albumin 3.0 L Active Medications Generic Name Dose Route Start Last Admin Trade Name Freq PRN Reason Stop Dose Admin Acetaminophen 650 mg 06/03/18 06:39 06/03/18 07:20 Tylenol - PO 650 mg Q6H PRN Administration FEVER Docusate Sodium 100 mg 06/04/18 10:00 Colace - PO DAILY [facility] Enoxaparin Sodium 40 mg 06/03/18 10:00 06/03/18 09:18 Lovenox - SQ Not Given DAILY [facility] Sodium Chloride 1,000 mls @ 100 mls/hr 06/02/18 22:30 06/03/18 12:14 Normal Saline - IV 100 mls/hr ASDIR PATIENCE Administration Ceftriaxone Sodium 1 gm/ 50 mls @ 100 mls/hr 06/03/18 10:00 06/03/18 09:12 Dextrose IVPB 100 mls/hr DAILY [facility] Administration Protocol Isoniazid 300 mg 06/03/18 10:00 06/03/18 15:27 Inh - PO 300 mg DAILY PATIENCE Administration Morphine Sulfate 2 mg 06/03/18 16:49 Morphine Sulfate IVPUSH Q6H PRN PAIN LEVEL 6-10 Non-Formulary Medication 0.35 mg 06/03/18 10:00 Norethindrone [Norethindrone] PO DAILY [facility] Oxycodone HCl 5 mg 06/03/18 16:48 Roxicodone - PO Q4H PRN PAIN LEVEL 1-5 Pantoprazole Sodium 20 mg 06/03/18 10:00 06/03/18 15:29 Protonix - PO 20 mg DAILY PATIENCE Administration Potassium Chloride 40 meq 06/02/18 23:15 06/03/18 09:18 K-Dur - PO Not Given BID PATIENCE Pyridoxine HCl 100 mg 06/03/18 10:00 06/03/18 15:29 Vitamin B6 - PO 100 mg DAILY PATIENCE Administration ASSESSMENT/PLAN: Patient is a 28 year old female with past medical history of latent TB (on INH for the past 4 months), presented with one day history of fevers, dysuria and right flank pain. #Right flank pain likely 2/2 pyelonephritis -CT AP: In comparison to 03/05/18, interval development of acute right sided pyelonephritis is seen as well as ipsilateral acute pyelitis. Mild dilatation of the right renal collecting system which may be on the basis of a ureteropelvic junction obstruction. There is minimal dilatation of the left renal collecting system also as on the prior study. Development of a very small amount of pelvic free fluid is seen. As on prior study, approximately 5x3.8cm left ovarian cyst is noted without obvious interval change. -Continue Ceftriaxone 1gm daily -IV hydration -Oxycodone 5mg q4h and Morphine 2mg q6h PRN for pain -Tylenol for fever -For ADVERTISING ACCOUNT MANAGER consult as outpatient for left ovarian cyst -Urology (Dr. Gudino)consulted. REcommendations appreciated. -Right mild dilatation on CT, possibly will resolve with treatment for infection -If persists and is not clinically contraindicated, would consider renal scan with lasix -Analgesics PRN #Hypokalemia -KCl 40mg BID #Latent TB -Continue INH 300mg daily #FEN -IV NS @100cc/hr -Hypokalemia, repleted -Routine bmp monitoring -Regular diet #Prophylaxis -Lovenox 40mg sq daily #Disposition -full code -med-surg Visit type - Emergency Visit Emergency Visit: Yes ED Registration Date: 06/02/18 Care time: The patient presented to the Emergency Department on the above date and was hospitalized for further evaluation of their emergent condition. - New Patient This patient is new to me today: Yes Date on this admission: 06/03/18 - Critical Care Critical Care patient: No
[2018-06-03] MEDS: MORPHINE SULFATE 2 MG/ML VIAL IVPUSH PRN (18:26)
[2018-06-03] MEDS: FERROUS SO4 325 MG TABLET (FP) PO SCH (21:53)
[2018-06-03] MEDS ORDERED: PATIENT'S OWN MEDICATION (NON-FORMULARY) (Ferrous Sulfate [Ferrous Sulfate] 325 MG) PO SCH (22:00)
[2018-06-04] MEDS: MORPHINE SULFATE 2 MG/ML VIAL IVPUSH PRN ×2 (07:03→17:37)
[2018-06-04] MEDS ORDERED: PT OWN MED DRAWER 7, Y5N ONE (09:11)
[2018-06-04] MEDS ORDERED: cefTRIAXone SODIUM 1 GM VIAL ONE (09:11)
[2018-06-04] MEDS ORDERED: DEXTROSE 5%-WATER - 50 ML IVPB ONE (09:12)
[2018-06-04] MEDS: SODIUM CHLORIDE 1,000 ML IV SCH ×2 (09:14→20:18)
[2018-06-04] MEDS: CEFTRIAXONE 1 GM in DEXTROSE 5%-WATER - 50 ML IVPB SCH (09:15)
[2018-06-04] MEDS: PANTOPRAZOLE 20 MG TABLET (FP) PO SCH (09:16)
[2018-06-04] MEDS: POTASSIUM CHLORIDE TABS 20 MEQ TABLET.ER (FP) PO SCH ×2 (09:17→21:01)
[2018-06-04] MEDS: FERROUS SO4 325 MG TABLET (FP) PO SCH ×2 (09:17→21:01)
[2018-06-04] MEDS: DOCUSATE SODIUM 100 MG CAPSULE (FP) PO SCH (09:17)
[2018-06-04] MEDS: ENOXAPARIN NA (PORCINE) 40 MG/0.4 ML DISP.SYRIN SQ SCH (09:17)
[2018-06-04] MEDS: ISONIAZID 300 MG TABLET (FP) PO SCH (09:21)
[2018-06-04] MEDS: PYRIDOXINE HCL (B-6) 50 MG TABLET (FP) PO SCH (09:21)
[2018-06-04 09:32] LABS: BASO % 0.3 % (0-2.0); EOS % 0.4 % (0-4.5); HEMATOCRIT 30.9 % (32.4-45.2); HEMOGLOBIN 10.4 GM/dL (10.7-15.3); LYMPH % 22.6 % (8-40); MCH 27.4 pg (25.7-33.7); MCHC 33.6 g/dl (32.0-36.0); MEAN CELL VOLUME 81.6 fl (80-96); MEAN PLT VOLUME 8.5 fl (7.5-11.1); MONO % 12.4 % (3.8-10.2); NEUT % 64.3 % (42.8-82.8); PLATELET COUNT 175 K/MM3 (134-434); RBC 3.79 M/mm3 (3.60-5.2); RDW 14.5 % (11.6-15.6); WHITE BLOOD COUNT 4.3 K/mm3 (4.0-10.0)
[2018-06-04 10:52] LABS: ANION GAP 7 MMOL/L (8-16); BLOOD UREA NITROGEN 5 mg/dL (7-18); CALCIUM 8.2 mg/dL (8.5-10.1); CHLORIDE 112 mmol/L (98-107); CO2 21 mmol/L (21-32); CREATININE 0.5 mg/dL (0.55-1.3); GLUCOSE,RANDOM 133 mg/dL (74-106); MAGNESIUM 2.3 mg/dL (1.8-2.4); PHOSPHOROUS 1.5 mg/dL (2.5-4.9); POTASSIUM 3.8 mmol/L (3.5-5.1); SODIUM 140 mmol/L (136-145)
[2018-06-04] MEDS ORDERED: NAPH,MB-DB/K PH,MBDB POWDER PACKET PO ONE (13:30)
--- NOTE | 2018-06-04 17:17 | PN ---
Teaching Attending Note Name of Resident: Leidy Hunter ATTENDING PHYSICIAN STATEMENT I saw and evaluated the patient. I reviewed the resident's note and discussed the case with the resident. I agree with the resident's findings and plan as documented. SUBJECTIVE: No fever or chills. R flank pain. N oN/V. feels a little better OBJECTIVE: NAD CV: RRR Lungs: CTAB Abd: soft, TTP in RLQ , RUQ, and R flank. + CVA tenderness Ext : no edema ASSESSMENT AND PLAN: 28 y/o lady with h/o latent TB who presented with fatigue, fever and lower back paina nd was found to have R pyelonephritis . 1- Acute pyelonpehritis : - no fever today. clinically looks better - urine cx with olivera sensitive E coli. cont ceftriaxone. - If no more fever - Uro consult noted. need out patient uro follow up 2- h/o Latent TB. cont with isonizide 300 mg daily dispo : HLOC
--- NOTE | 2018-06-04 18:48 | PN ---
Physical Exam: SUBJECTIVE: Patient seen and examined at bedside this morning. Patient had low grade fever overnight. Today, she still reports severe RLQ/right flank pain. Advised patient to ask for pain medications when she needs it. Otherwise denies headache, dizziness, chest pain, SOB, diarrhea, urinary symptoms. OBJECTIVE: Vital Signs Period Temp Pulse Resp BP Sys/Calero Pulse Ox Last 24 Hr 98.6 F-99.0 F 77-90 20-20 106-117/50-65 GENERAL: The patient is awake, alert, and fully oriented, in no acute distress. HEAD: Normal with no signs of trauma. EYES: PERRLA, EOMI, sclera anicteric, conjunctiva clear. ENT: Ears normal,oropharynx clear without exudates, dry mucous membranes. NECK: Trachea midline, full range of motion, supple. LUNGS: Breath sounds equal, clear to auscultation bilaterally. HEART: Regular rate and rhythm, S1, S2 without murmur, rub or gallop. ABDOMEN: Soft, +RLQ tenderness, nondistended, normoactive bowel sounds. +Right CVA tenderness EXTREMITIES: 2+ pulses, warm, well-perfused, no edema. SKIN: Warm, dry, normal turgor, no rashes or lesions noted Laboratory Results - last 24 hr 06/04/18 06/04/18 09:20 09:20 WBC 4.3 RBC 3.79 Hgb 10.4 L Hct 30.9 L MCV 81.6 MCH 27.4 MCHC 33.6 RDW 14.5 Plt Count 175 D MPV 8.5 Absolute Neuts (auto) 2.7 Neutrophils % 64.3 D Lymphocytes % 22.6 D Monocytes % 12.4 H D Eosinophils % 0.4 D Basophils % 0.3 Nucleated RBC % 0 Sodium 140 Potassium 3.8 Chloride 112 H Carbon Dioxide 21 Anion Gap 7 L BUN 5 L Creatinine 0.5 L Creat Clearance w eGFR > 60 Random Glucose 133 H Calcium 8.2 L Phosphorus 1.5 L Magnesium 2.3 Active Medications Generic Name Dose Route Start Last Admin Trade Name Freq PRN Reason Stop Dose Admin Acetaminophen 650 mg 06/03/18 06:39 06/03/18 07:20 Tylenol - PO 650 mg Q6H PRN Administration FEVER Docusate Sodium 100 mg 06/04/18 10:00 06/04/18 09:17 Colace - PO 100 mg DAILY [facility] Administration Enoxaparin Sodium 40 mg 06/03/18 10:00 06/04/18 09:17 Lovenox - SQ 40 mg DAILY [facility] Administration Ferrous Sulfate 325 mg 06/03/18 22:00 06/04/18 09:17 Feosol - PO 325 mg BID PATIENCE Administration Sodium Chloride 1,000 mls @ 100 mls/hr 06/02/18 22:30 06/04/18 09:14 Normal Saline - IV 100 mls/hr ASDIR PATIENCE Administration Ceftriaxone Sodium 1 gm/ 50 mls @ 100 mls/hr 06/03/18 10:00 06/04/18 09:15 Dextrose IVPB 100 mls/hr DAILY [facility] Administration Protocol Isoniazid 300 mg 06/03/18 10:00 06/04/18 09:21 Inh - PO 300 mg DAILY [facility] Administration Morphine Sulfate 2 mg 06/03/18 16:49 06/04/18 17:37 Morphine Sulfate IVPUSH 2 mg Q6H PRN Administration PAIN LEVEL 6-10 Non-Formulary Medication 0.35 mg 06/03/18 10:00 Norethindrone [Norethindrone] PO DAILY [facility] Oxycodone HCl 5 mg 06/03/18 16:48 Roxicodone - PO Q4H PRN PAIN LEVEL 1-5 Pantoprazole Sodium 20 mg 06/03/18 10:00 06/04/18 09:16 Protonix - PO 20 mg DAILY [facility] Administration Potassium Chloride 40 meq 06/02/18 23:15 06/04/18 09:17 K-Dur - PO 40 meq BID PATIENCE Administration Pyridoxine HCl 100 mg 06/03/18 10:00 06/04/18 09:21 Vitamin B6 - PO 100 mg DAILY PATIENCE Administration --CT AP: In comparison to 03/05/18, interval development of acute right sided pyelonephritis is seen as well as ipsilateral acute pyelitis. Mild dilatation of the right renal collecting system which may be on the basis of a ureteropelvic junction obstruction. There is minimal dilatation of the left renal collecting system also as on the prior study. Development of a very small amount of pelvic free fluid is seen. As on prior study, approximately 5x3.8cm left ovarian cyst is noted without obvious interval change. ASSESSMENT/PLAN: Patient is a 28 year old female with past medical history of latent TB (on INH for the past 4 months), presented with one day history of fevers, dysuria and right flank pain. #Right flank pain likely 2/2 pyelonephritis -Continue Ceftriaxone 1gm daily day 2 -IV hydration -Oxycodone 5mg q4h and Morphine 2mg q6h PRN for pain -Tylenol for fever -For MICRO LAB ANALYST consult as outpatient for left ovarian cyst -Urology (Dr. Gudino)consulted. REcommendations appreciated. -Right mild dilatation on CT, possibly will resolve with treatment for infection -To follow-up as outpatient -Analgesics PRN #Hypokalemia -KCl 40mg BID #Latent TB -Continue INH 300mg daily #FEN -IV NS @100cc/hr -Hypokalemia, repleted -Routine bmp monitoring -Regular diet #Prophylaxis -Lovenox 40mg sq daily #Disposition -full code -med-surg Visit type - Emergency Visit Emergency Visit: Yes ED Registration Date: 06/02/18 Care time: The patient presented to the Emergency Department on the above date and was hospitalized for further evaluation of their emergent condition. - New Patient This patient is new to me today: No - Critical Care Critical Care patient: No
[2018-06-05 08:15] LABS: ANION GAP 7 MMOL/L (8-16); BLOOD UREA NITROGEN 6 mg/dL (7-18); CALCIUM 8.7 mg/dL (8.5-10.1); CHLORIDE 110 mmol/L (98-107); CO2 23 mmol/L (21-32); CREATININE 0.4 mg/dL (0.55-1.3); GLUCOSE,RANDOM 87 mg/dL (74-106); MAGNESIUM 2.3 mg/dL (1.8-2.4); PHOSPHOROUS 3.7 mg/dL (2.5-4.9); POTASSIUM 4.4 mmol/L (3.5-5.1); SODIUM 140 mmol/L (136-145)
[2018-06-05 09:04] VITALS: PULSE 81
[2018-06-05] MEDS ORDERED: cefTRIAXone SODIUM 1 GM VIAL ONE (10:06)
[2018-06-05] MEDS ORDERED: DEXTROSE 5%-WATER - 50 ML IVPB ONE (10:07)
[2018-06-05] MEDS: FERROUS SO4 325 MG TABLET (FP) PO SCH (10:10)
[2018-06-05] MEDS: ENOXAPARIN NA (PORCINE) 40 MG/0.4 ML DISP.SYRIN SQ SCH (10:10)
[2018-06-05] MEDS: PYRIDOXINE HCL (B-6) 50 MG TABLET (FP) PO SCH (10:10)
[2018-06-05] MEDS: PANTOPRAZOLE 20 MG TABLET (FP) PO SCH (10:10)
[2018-06-05] MEDS: DOCUSATE SODIUM 100 MG CAPSULE (FP) PO SCH (10:11)
[2018-06-05] MEDS: POTASSIUM CHLORIDE TABS 20 MEQ TABLET.ER (FP) PO SCH (10:11)
[2018-06-05] MEDS: CEFTRIAXONE 1 GM in DEXTROSE 5%-WATER - 50 ML IVPB SCH (10:11)
[2018-06-05] MEDS ORDERED: PT OWN MED DRAWER 7, Y5N ONE (10:21)
[2018-06-05] MEDS: ISONIAZID 300 MG TABLET (FP) PO SCH (10:24)
--- NOTE | 2018-06-05 14:03 | PN ---
Teaching Attending Note Name of Resident: Leidy Hunter ATTENDING PHYSICIAN STATEMENT I saw and evaluated the patient. I reviewed the resident's note and discussed the case with the resident. I agree with the resident's findings and plan as documented. SUBJECTIVE: No fever or chills. feels a little SOB. feels anxious. pain in R flank improved a lot today. OBJECTIVE: NAD CV: RRR Lungs: CTAB Abd: soft, TTP in RLQ,. minimal R CVA tenderness Ext : no edema ASSESSMENT AND PLAN: 28 y/o lady with h/o latent TB who presented with fatigue, fever and lower back paina nd was found to have R pyelonephritis . 1- Acute pyelonpehritis: - dc IVF - clinically improved. - will switch to po Vantin. day 4/10 of abx . - will repeat US of the kidneys before dc - f/u with urology as out pt. Stressed on importance of follow up 2- h/o Latent TB. cont with isonizide 300 mg daily dispo :Dc this afternoon pending renal US results
[2018-06-05 15:21] VITALS: BP 103/59; TEMP 98.1
--- NOTE | 2018-06-05 17:53 | PN ---
Physical Exam: SUBJECTIVE: Patient seen and examined at bedside this morning. No acute events overnight. Patient still reporting right flank pain today, but better than yesterday. Otherwise, denies fever, chills, headache, dizziness, chest pain, SOB , abdominal pain, diarrhea, urinary symptoms. OBJECTIVE: Vital Signs Period Temp Pulse Resp BP Sys/Calero Pulse Ox Last 24 Hr 98.1 F-98.5 F 81-85 18-20 103-111/56-76 99 GENERAL: The patient is awake, alert, and fully oriented, in no acute distress. HEAD: Normal with no signs of trauma. EYES: PERRLA, EOMI, sclera anicteric, conjunctiva clear. ENT: Ears normal,oropharynx clear without exudates, dry mucous membranes. NECK: Trachea midline, full range of motion, supple. LUNGS: Breath sounds equal, clear to auscultation bilaterally. HEART: Regular rate and rhythm, S1, S2 without murmur, rub or gallop. ABDOMEN: Soft, +RLQ tenderness, nondistended, normoactive bowel sounds. +Right CVA tenderness EXTREMITIES: 2+ pulses, warm, well-perfused, no edema. SKIN: Warm, dry, normal turgor, no rashes or lesions noted Laboratory Results - last 24 hr 06/05/18 06:00 Sodium 140 Potassium 4.4 Chloride 110 H Carbon Dioxide 23 Anion Gap 7 L BUN 6 L Creatinine 0.4 L Creat Clearance w eGFR > 60 Random Glucose 87 Calcium 8.7 Phosphorus 3.7 Magnesium 2.3 Active Medications Generic Name Dose Route Start Last Admin Trade Name Freq PRN Reason Stop Dose Admin Acetaminophen 650 mg 06/03/18 06:39 06/03/18 07:20 Tylenol - PO 650 mg Q6H PRN Administration FEVER Docusate Sodium 100 mg 06/04/18 10:00 06/05/18 10:11 Colace - PO 100 mg DAILY PATIENCE Administration Enoxaparin Sodium 40 mg 06/03/18 10:00 06/05/18 10:10 Lovenox - SQ 40 mg DAILY PATIENCE Administration Ferrous Sulfate 325 mg 06/03/18 22:00 06/05/18 10:10 Feosol - PO 325 mg BID PATIENCE Administration Ceftriaxone Sodium 1 gm/ 50 mls @ 100 mls/hr 06/03/18 10:00 06/05/18 10:11 Dextrose IVPB 100 mls/hr DAILY PATIENCE Administration Protocol Isoniazid 300 mg 06/03/18 10:00 06/05/18 10:24 Inh - PO 300 mg DAILY PATIENCE Administration Morphine Sulfate 2 mg 06/03/18 16:49 06/04/18 17:37 Morphine Sulfate IVPUSH 2 mg Q6H PRN Administration PAIN LEVEL 6-10 Non-Formulary Medication 0.35 mg 06/03/18 10:00 Norethindrone [Norethindrone] PO DAILY [facility]IENCE Oxycodone HCl 5 mg 06/03/18 16:48 Roxicodone - PO Q4H PRN PAIN LEVEL 1-5 Pantoprazole Sodium 20 mg 06/03/18 10:00 06/05/18 10:10 Protonix - PO 20 mg DAILY PATIENCE Administration Potassium Chloride 40 meq 06/02/18 23:15 06/05/18 10:11 K-Dur - PO 40 meq BID PATIENCE Administration Pyridoxine HCl 100 mg 06/03/18 10:00 06/05/18 10:10 Vitamin B6 - PO 100 mg DAILY PATIENCE Administration --CT AP: In comparison to 03/05/18, interval development of acute right sided pyelonephritis is seen as well as ipsilateral acute pyelitis. Mild dilatation of the right renal collecting system which may be on the basis of a ureteropelvic junction obstruction. There is minimal dilatation of the left renal collecting system also as on the prior study. Development of a very small amount of pelvic free fluid is seen. As on prior study, approximately 5x3.8cm left ovarian cyst is noted without obvious interval change. ASSESSMENT/PLAN: Patient is a 28 year old female with past medical history of latent TB (on INH for the past 4 months), presented with one day history of fevers, dysuria and right flank pain. #Right flank pain likely 2/2 pyelonephritis -Continue Ceftriaxone 1gm daily day 3 -IV hydration -Oxycodone 5mg q4h and Morphine 2mg q6h PRN for pain -Tylenol for fever -For REAL ESTATE LISTING CONSULTANT consult as outpatient for left ovarian cyst -Urology (Dr. Gudino)consulted. REcommendations appreciated. -Right mild dilatation on CT, possibly will resolve with treatment for infection -To follow-up as outpatient -Analgesics PRN #Hypokalemia -KCl 40mg BID #Latent TB -Continue INH 300mg daily #FEN -IV NS @100cc/hr -Routine bmp monitoring -Regular diet #Prophylaxis -Lovenox 40mg sq daily #Disposition -full code -med-surg Visit type - Emergency Visit Emergency Visit: Yes ED Registration Date: 06/02/18 Care time: The patient presented to the Emergency Department on the above date and was hospitalized for further evaluation of their emergent condition. - New Patient This patient is new to me today: No - Critical Care Critical Care patient: No
--- NOTE | 2018-06-05 22:11 | DS ---
Physical Exam: SUBJECTIVE: Patient seen and examined at bedside this morning. No acute events overnight. Patient still reporting right flank pain today, but better than yesterday. Otherwise, denies fever, chills, headache, dizziness, chest pain, SOB , abdominal pain, diarrhea, urinary symptoms. OBJECTIVE: Vital Signs Temperature 98.1 F 06/05/18 15:19 Pulse Rate 81 06/05/18 15:19 Respiratory Rate 18 06/05/18 15:19 Blood Pressure 103/59 L 06/05/18 15:19 O2 Sat by Pulse Oximetry (%) 99 06/05/18 09:00 PHYSICAL EXAM GENERAL: The patient is awake, alert, and fully oriented, in no acute distress. HEAD: Normal with no signs of trauma. EYES: PERRLA, EOMI, sclera anicteric, conjunctiva clear. ENT: Ears normal,oropharynx clear without exudates, dry mucous membranes. NECK: Trachea midline, full range of motion, supple. LUNGS: Breath sounds equal, clear to auscultation bilaterally. HEART: Regular rate and rhythm, S1, S2 without murmur, rub or gallop. ABDOMEN: Soft, +RLQ tenderness, nondistended, normoactive bowel sounds. +Right CVA tenderness EXTREMITIES: 2+ pulses, warm, well-perfused, no edema. SKIN: Warm, dry, normal turgor, no rashes or lesions noted LABS Laboratory Results - last 24 hr 06/05/18 06:00 Sodium 140 Potassium 4.4 Chloride 110 H Carbon Dioxide 23 Anion Gap 7 L BUN 6 L Creatinine 0.4 L Creat Clearance w eGFR > 60 Random Glucose 87 Calcium 8.7 Phosphorus 3.7 Magnesium 2.3 --CT AP: In comparison to 03/05/18, interval development of acute right sided pyelonephritis is seen as well as ipsilateral acute pyelitis. Mild dilatation of the right renal collecting system which may be on the basis of a ureteropelvic junction obstruction. There is minimal dilatation of the left renal collecting system also as on the prior study. Development of a very small amount of pelvic free fluid is seen. As on prior study, approximately 5x3.8cm left ovarian cyst is noted without obvious interval change. HOSPITAL COURSE: Date of Admission:06/02/18 Date of Discharge: 06/05/18 Patient is a 28 year old female with past medical history of latent TB (on INH for the past 4 months), presented with one day history of fevers, dysuria and right flank pain. CT scan of abdomen revealed right sided pyelonephritis. Urine culture grew olivera-sensitive E.coli. Patient was started on IV antibiotics and IV fluids. Patient was also seen by urology for bilateral ureteropelvic obstruction. Patient improved throughout her hospital stay. She was discharged with instructions to complete 10days of antibiotics. For follow-up with PCP, urology for UPJ obstruction and gynecology for left ovarian cyst. Minutes to complete discharge: 38 Discharge Summary Reason For Visit: PYELONEPHRITIS Condition: Improved - Instructions Diet, Activity, Other Instructions: Your visit You were admitted to the hospital because you had right-sided back pain. CAT scan showed you had a kidney infection. You were treated with IV antibiotics. Please continue taking the medication as prescribed below. You were also noted to have a dilation in your urinary tract. You were seen by a urologist. Please follow-up with Dr. Gudino for further evaluation and management. You had an ovarian cyst noted on your CAT scan. Please follow up with the machine hoop maker helper for further work-up. Medications Please take the following medications as prescribed: 1. Ceftin 500 mg every 12 hours for 6 days, starting tomorrow. Continue your other home medications. Follow-up -Follow-up with your primary care doctor (Dr. Guy) within 1 week. -Follow-up with the urologist (Dr. Gudino) within 1 week. -Follow-up with the WAREHOUSE PULLER (Dr. Jacobson) within 1-2 weeks. Additional info Call 911 or go to the ED if with any worsening fever, chills, headache, nausea, vomiting, shortness of breath, abdominal pain, diarrhea, bloody urine or any new concerns noted. Referrals: Gibson Gudino MD., [Staff Physician] - 1 Week Estrella Jacobson MD [Staff Physician] - 1 Week Cristy Guy MD [Primary Care Provider] - 1 Week Disposition: HOME - Home Medications Comprehensive Discharge Medication List: Ambulatory Orders Cholecalciferol (Vitamin D3) [D3-50] 50,000 unit PO WEEKLY 05/13/18 Isoniazid 300 mg PO DAILY 05/13/18 Norethindrone 0.35 mg PO DAILY 05/13/18 Omeprazole 20 mg PO DAILY 05/13/18 Pyridoxine HCl (B-6) [Vitamin B6 -] 100 mg PO DAILY 05/13/18 Famotidine [Pepcid] 40 mg PO DAILY 06/03/18 Ferrous Sulfate 325 mg PO BID 06/03/18 Acetaminophen [Tylenol .Regular Strength -] 650 mg PO Q6H PRN #15 tablet Cefuroxime Axetil [Ceftin -] 500 mg PO Q12H #12 tablet 06/05/18 This patient is new to me today: No Emergency Visit: Yes ED Registration Date: 06/02/18 Care time: The patient presented to the Emergency Department on the above date and was hospitalized for further evaluation of their emergent condition. Critical Care patient: No - Discharge Referral Referred to [facility] Med [facility] No
== END 2018-06-05 19:09 | disposition home or self-care (01) | DRG 463 ==
LOC: JER 11:24 → JERBED 17:50 → J6S 06-03 02:35
PROVIDERS: ADMIT Internal Medicine; ATTEND Internal Medicine
DX: N10 Acute pyelonephritis (principal); E87.6 Hypokalemia; N83.202 Unspecified ovarian cyst, left side; R76.11 Nonspecific reaction to tuberculin skin test without active tuberculosis
CPT/HCPCS: 36415; 71045-TC-FY; 74177-TC; 76775-TC; 76830-TC; 80048; 80053; 81003; 81015; 83605; 83735; 84100; 84484; 84703; 85025; 85610; 85730; 87040; 87086; 87186; 90688; 93005; 93010; 99285-25; G0008; J0131; J7030

== ENCOUNTER 2018-07-06 15:35 | Emergency (ER) | payer OTHER ==
[2018-07-06 15:48] VITALS: BP 113/77; PULSE 86; TEMP 98.5; BMI 21.2
[2018-07-06] MEDS ORDERED: SODIUM CHLORIDE 1,000 ML IV STA (16:38)
[2018-07-06] MEDS ORDERED: ACETAMINOPHEN 1000 MG/100 ML VIAL (NON FORMULARY) IVPB ONE (16:38)
[2018-07-06] MEDS ORDERED: ACETAMINOPHEN INJECTION 100 ML IVPB ONE (16:44)
--- NOTE | 2018-07-06 16:51 | PDOC ---
History of Present Illness - General Chief Complaint: Urinary Problem Stated Complaint: LWR BACK PAIN Time Seen by Provider: 07/06/18 16:09 History Source: Patient Exam Limitations: Language Barrier - History of Present Illness Initial Comments: 07/06/18 16:43 Pt is a 28yo F with PMH of latent TB (on month 6 of INH), pyelonephritis last month, Ovarian Cysts presenting to ED with complaints of R sided flank pain. Pt states the pain is similar to when she was here one month ago but compared to last time, she does not have fevers. She states the pain started two days ago, feels like a burning/itching and is constant. She endorses urinary frequency and dysuria as well. She is scheduled for a cystoscopy on the of this month. Cannot state when her LMP was because she is taking OCPs. Denies fevers, chills, n/v/d, chest pain, abdominal pain, cough, hematuria. PMD: Pallavi Uro: Jaspal Vincent PMH: see hpi PSH: none Meds: INH, Keflex, FeSO4, OCP Allergies: nkda Social: Denies Past History - Past Medical History Allergies/Adverse Reactions: Allergies Allergy/AdvReac Type Severity Reaction Status Date / Time No Known Allergies Allergy Verified 07/06/18 15:44 Home Medications: Ambulatory Orders Cholecalciferol (Vitamin D3) [D3-50] 50,000 unit PO WEEKLY 05/13/18 Norethindrone 0.35 mg PO DAILY 05/13/18 Omeprazole 20 mg PO DAILY 05/13/18 Pyridoxine HCl (B-6) [Vitamin B6 -] 100 mg PO DAILY 05/13/18 Ferrous Sulfate 325 mg PO BID 06/03/18 Cefuroxime Axetil [Ceftin -] 500 mg PO Q12H #12 tablet 06/05/18 COPD: No CHF: No GI Disorders: No Hypercholesterolemia: No - Surgical History Gastric Stapling: No Lung Surgery: No - Reproductive History Para: 1 - Immunization History Immunization Up to Date: No - Suicide/Smoking/Psychosocial Hx Smoking History: Never smoked Have you smoked in the past 12 months: No Hx Alcohol Use: No Drug/Substance Use Hx: No Substance Use Type: None Hx Substance Use Treatment: No Review of Systems - Review of Systems Constitutional: No: Chills, Fever HEENTM: No: Symptoms Reported Respiratory: No: Cough, Shortness of Breath, Hemoptysis Cardiac (ROS): No: Chest Pain, Lightheadedness, Palpitations ABD/GI: No: Constipated, Diarrhea, Nausea, Vomiting, Abdominal cramping : Yes: Dysuria, Frequency, Flank Pain. No: Hematuria Musculoskeletal: No: Symptoms Reported Integumentary: No: Symptoms Reported Neurological: No: Symptoms reported *Physical Exam - Vital Signs Last Vital Signs Temp Pulse Resp BP Pulse Ox 98.5 F 86 16 113/77 99 07/06/18 15:44 07/06/18 15:44 07/06/18 15:44 07/06/18 15:44 07/06/18 15:44 - Physical Exam General Appearance: Yes: Nourished, Appropriately Dressed. No: Apparent Distress HEENT: positive: EOMI, JANINE Neck: positive: Trachea midline, Supple Respiratory/Chest: positive: Chest Tender, Lungs Clear. negative: Crackles, Rhonchi, Wheezing Cardiovascular: positive: Regular Rhythm, Regular Rate, S1, S2. negative: Edema , JVD, Murmur Vascular Pulses: Carotid (R): 2+, Carotid (L): 2+, Dorsalis-Pedis (R): 2+, Doralis-Pedis (L): 2+ Gastrointestinal/Abdominal: positive: Normal Bowel Sounds, Tender (suprapubic tenderness), Soft. negative: Distended, Guarding, Rebound, Hernia, Mass Musculoskeletal: negative: CVA Tenderness (R), CVA Tenderness (L), Muscle Spasm , Vertebral Tenderness Extremity: positive: Normal Capillary Refill. negative: Swelling, Calf Tenderness Integumentary: positive: Normal Color, Dry, Warm. negative: Rash, Ecchymosis, Bruising Neurologic: positive: animal stunner II-XII NML intact, Fully Oriented, Alert, Normal Mood/ Affect, Normal Response, Motor Strength 5/5 Moderate Sedation - Procedure Monitoring Vital Signs: Procedure Monitoring Vital Signs Temperature 98.5 F 07/06/18 15:44 Pulse Rate 86 07/06/18 15:44 Respiratory Rate 16 07/06/18 15:44 Blood Pressure 113/77 07/06/18 15:44 O2 Sat by Pulse Oximetry (%) 99 07/06/18 15:44 ED Treatment Course - LABORATORY CBC & Chemistry Diagram: 03/11/19 16:29 07/06/18 16:29 Medical Decision Making - Medical Decision Making 07/06/18 16:52 Pt is a 28yo F with PMH of latent TB (on month 6 of INH), pyelonephritis last month, Ovarian Cysts presenting to ED with complaints of R sided flank pain. Pt states the pain is similar to when she was here one month ago but compared to last time, she does not have fevers. She states the pain started two days ago, feels like a burning/itching and is constant. She endorses urinary frequency and dysuria as well. She is scheduled for a cystoscopy on the of this month. Cannot state when her LMP was because she is taking OCPs. Denies fevers, chills, n/v/d, chest pain, abdominal pain, cough, hematuria. Vitals: wnl PE: suprapubic tenderness, no flank tenderness, no overlying skin changes. lungs clear. normal heart sounds Ddx includes but not limited to pyelonephritis, nephrolithiasis, obstruction, appendicitis, ovarian torsion, TOA, PID, AAA, dissection, PNA -cbc, cmp, ua, upreg, ucx -iv fluids, iv tylenol 07/06/18 18:04 Labs significant for 2+ blood in urine. Negative for infection. CBC and CMP wnl. pending US *DC/Admit/Observation/Transfer Diagnosis at time of Disposition: Ureteropelvic junction (UPJ) obstruction - Discharge Dispostion Disposition: HOME Condition at time of disposition: Good Decision to Admit order: No - Referrals Referrals: Domonique Olivo MD [Primary Care Provider] - Evan Vincent MD [Non Staff, Medical] - - Patient Instructions Additional Instructions: You were seen in the emergency room today for pain on the right side or kidney pain. You do not have an infection and the kidney appears normal. Compared to the last ultrasound, there is extra fluid in the kidney but this has not changed. Please make sure you go to your appointment on the . Drink lots of fluids. Come back to the emergency room if pain gets worse, you develop fever, you have problems with urination, you start vomiting or if any new concerning symptom develops. Thank you - Post Discharge Activity
[2018-07-06 16:52] LABS: BASO % 0.5 % (0-2.0); EOS % 2.1 % (0-4.5); HEMATOCRIT 38.9 % (32.4-45.2); HEMOGLOBIN 13.3 GM/dL (10.7-15.3); LYMPH % 42.1 % (8-40); MCH 28.4 pg (25.7-33.7); MCHC 34.2 g/dl (32.0-36.0); MEAN CELL VOLUME 83.3 fl (80-96); MEAN PLT VOLUME 8.7 fl (7.5-11.1); MONO % 5.9 % (3.8-10.2); NEUT % 49.4 % (42.8-82.8); PLATELET COUNT 173 K/MM3 (134-434); RBC 4.68 M/mm3 (3.60-5.2); RDW 15.7 % (11.6-15.6); WHITE BLOOD COUNT 4.8 K/mm3 (4.0-10.0)
[2018-07-06 17:06] LABS: HCG,QUALITATIVE URINE Negative
[2018-07-06 17:22] LABS: URINE APPEARANCE Clear; URINE BILIRUBIN Negative (<2.0 mg/dL); URINE COLOR Yellow; URINE GLUCOSE (UA) Negative (NEGATIVE); URINE KETONE Negative (NEGATIVE); URINE LEUK ESTERASE Negative (NEGATIVE); URINE NITRITE Negative (NEGATIVE); URINE PROTEIN Negative (NEGATIVE); URINE UROBILINOGEN 0.2 mg/dL (0.2-1.0)
[2018-07-06 17:25] LABS: ALBUMIN 3.9 g/dl (3.4-5.0); ALK PHOS 32 U/L (45-117); ANION GAP 6 MMOL/L (8-16); BILIRUBIN,TOTAL 0.4 mg/dL (0.2-1); BLOOD UREA NITROGEN 6 mg/dL (7-18); CALCIUM 8.6 mg/dL (8.5-10.1); CHLORIDE 108 mmol/L (98-107); CO2 24 mmol/L (21-32); CREATININE 0.4 mg/dL (0.55-1.3); GLUCOSE,RANDOM 117 mg/dL (74-106); POTASSIUM 3.4 mmol/L (3.5-5.1); SGOT/AST 14 U/L (15-37); SGPT/ALT 14 U/L (13-61); SODIUM 138 mmol/L (136-145); TOT PROT 7.4 g/dl (6.4-8.2)
[2018-07-06 17:52] LABS: EPI CELLS MOD /HPF (FEW)
--- NOTE | 2018-07-06 19:14 | PDOC ---
Attending Attestation - Physicial Exam PE: 07/06/18 21:03 GENERAL: Well-appearing, well-nourished. No apparent distress. HEENT: Normocephalic, atraumatic. PERRL, EOM intact. CARDIOVASCULAR: Normal S1, S2. Regular rate and rhythm. PULMONARY: Clear to auscultation bilaterally. ABDOMEN: +Mild suprapubic tenderness. Soft, non-distended. EXTREMITIES: Normal ROM in all four extremities. No gross deformities. SKIN: Warm, dry. No rash NEUROLOGICAL: No focal neurological deficits. <Regine Bah - Last Filed: 07/06/18 21:02> - Resident Resident Name: Barbra Angeles - ED Attending Attestation I have performed the following: I have examined & evaluated the patient, The case was reviewed & discussed with the resident, I agree w/resident's findings & plan, Exceptions are as noted - HPI HPI: 07/06/18 21:02 Female presents with right flank pain female p/w 2 days of rt flank 28 yo - Medical Decision Making 07/06/18 21:09 pt is not UA negative for UTI Renal ultrasound showed mild dilatation of the right renal collecting system. There is also a 4.8 cm left ovarian cyst Plan patient does have an appointment for cystoscopy and will follow-up with her urologist 07/06/18 21:11 <Paradise Grace - Last Filed: 07/06/18 21:11> Attestations - Attestations 07/06/18 21:03 Documentation prepared by Regine Bah, acting as medical claims examiner for Paradise Grace MD. <Regine Bah - Last Filed: 07/06/18 21:02>
== END 2018-07-06 21:32 | disposition home or self-care (01) ==
LOC: JER 15:35
PROC: 3E033NZ Introduction of Analgesics, Hypnotics, Sedatives into Peripheral Vein, Percutaneous Approach (ICD-10-PCS; principal; 2018-07-06)
DX: N13.5 Crossing vessel and stricture of ureter without hydronephrosis (principal); R76.11 Nonspecific reaction to tuberculin skin test without active tuberculosis
CPT/HCPCS: 36415; 76775-TC; 76856-TC; 80053; 81003; 81015; 84703; 85025; 87086; 96374; 99282-25; J0131; J7030

== ENCOUNTER 2018-07-15 09:42 | Day surgery (SDC) | payer OTHER ==
[2018-07-13 09:50] VITALS: BMI 22.6
[2018-07-15 10:18] VITALS: TEMP 97.8
[2018-07-15] MEDS ORDERED: PROPOFOL 20 ML ONE ×2 (10:47)
[2018-07-15 12:16] VITALS: BP 102/60; PULSE 69
--- NOTE | 2018-07-17 15:57 | PATH ---
Surgical Pathology Report Patient Name: YEE PARKER [facility]. Rec. #: [id number] /Age/Gender: 1990 (Age: 28) / F Account: [id number] Location: [facility] Taken: 07/15/2018 Received: 07/15/2018 Reported: 07/17/2018 Physicians: Sadia Borjas M.D. Specimen(s) Received A: SECOND PORTION DUODENUM B: BX ANTRUM C: BX GE JUNCTION Clinical History Abdominal pain Postoperative diagnosis: Gastritis Final Diagnosis A. SECOND PORTION DUODENUM, BIOPSY: DUODENUM MUCOSA WITH NO SIGNIFICANT PATHOLOGIC CHANGES. NO HISTOLOGIC EVIDENCE OF CELIAC DISEASE. B. ANTRUM, BIOPSY: GASTRIC MUCOSA WITH ACTIVE CHRONIC GASTRITIS. IMMUNOSTAIN FOR H. PYLORI IS POSITIVE. NEGATIVE FOR INTESTINAL METAPLASIA. C. GE JUNCTION, BIOPSY: COLUMNAR (GASTRIC) EPITHELIUM WITH CHRONIC INFLAMMATION. NEGATIVE FOR INTESTINAL METAPLASIA. Electronically Signed Bradley Valiente M.D. Gross Description A. Received in formalin, labeled "biopsy second portion of duodenum" is a fernandez, irregular portion of soft tissue measuring 0.3 cm. in greatest dimension. The specimen is submitted in toto in one cassette. B. Received in formalin, labeled "biopsy antrum" is a fernandez, irregular portion of soft tissue measuring 0.4 cm. in greatest dimension. The specimen is submitted in toto in one cassette. C. Received in formalin, labeled "biopsy GE junction" are 2 fernandez, irregular portions of soft tissue measuring 0.2 and 0.3 cm. in greatest dimension. The specimens are submitted in toto in one cassette. 07/16/2018 saudi07/16/2018
== END 2018-07-15 12:30 | disposition home or self-care (01) ==
LOC: FASU-ENDO 09:42
PROVIDERS: ATTEND Internal Medicine Gastroenterology
PROC: 0DB68ZX Excision of Stomach, Via Natural or Artificial Opening Endoscopic, Diagnostic (ICD-10-PCS; 2018-07-15)
PROC: 0DB48ZX Excision of Esophagogastric Junction, Via Natural or Artificial Opening Endoscopic, Diagnostic (ICD-10-PCS; 2018-07-15)
PROC: 0DB98ZX Excision of Duodenum, Via Natural or Artificial Opening Endoscopic, Diagnostic (ICD-10-PCS; principal; 2018-07-15 11:37)
DX: D64.9 Anemia, unspecified (principal); K29.50 Unspecified chronic gastritis without bleeding; B96.81 Helicobacter pylori [H. pylori] as the cause of diseases classified elsewhere; K22.9 Disease of esophagus, unspecified
CPT/HCPCS: 84703; 88305-TC; 88342-TC